=== PATIENT | female | born 1950 | race Caucasian/White ===

== ENCOUNTER → 2016-08-26 | Outpatient (CLI) | payer OTHER ==
[~2016-08-26] MED LIST: AMOX875T PO; ANT25HP PO; ASPI325T45 PO; ASPI81TA28 PO; CALC600T9 PO; CEPH500C PO; CITA40TA4 PO; CLX20 PO; DIPH25CA65 PO; LACTCHW3 PO; LATA0.5S OPB; LOSA100T33 PO; LOSARTAN PO; LSX40 PO; MELO7.5T5 PO; MULT-845 PO; RCPAV2 IV; TRAM-10 PO; TRAV0.00 OPB
== END ==
LOC: C.LABBC 12:56
PROVIDERS: ATTEND Orthopaedic Surgery
DX: M25.559 Pain in unspecified hip (principal); Z96.649 Presence of unspecified artificial hip joint; L03.90 Cellulitis, unspecified

== ENCOUNTER 2016-08-27 10:51 | Inpatient (IN) | payer OTHER ==
[~2016-08-27] VITALS: Ht 154.9 cm; Wt 128.8 kg
[~2016-08-27 10:51] MED LIST changes: -AMOX875T PO; -ASPI325T45 PO; -ASPI81TA28 PO; -CALC600T9 PO; -CEPH500C PO; -CITA40TA4 PO; -LACTCHW3 PO; -LATA0.5S OPB; -LOSARTAN PO; -LSX40 PO; -MULT-845 PO; -RCPAV2 IV
--- NOTE | 2016-08-27 11:22 | EMERGENCY ROOM VISIT NOTE ---
History Report prepared by Yarelis: Danelle Stevens Under the Supervision of: Dr. Vargas Suarez M.D. First contact with patient: 11:10 Chief Complaint: REFERRED BY DOCTOR Stated Complaint: HIP PAIN History of Present Illness The patient is a 66 year old female who presents to the Emergency Room with complaints of constant left hip pain beginning 2 weeks ago. The patient states that 2 weeks ago her hip started to feel itchy where she previously had it replaced last October. She reports that it has progressively worsened. She complains of redness and itchiness. She denies any abdominal pain, fever and chills. The patient states that she saw her primary care doctor yesterday and had labs that were abnormal and she also had an x-ray. She notes that she is on Keflex and Augmentin that she started yesterday after seeing her PCP and surgeon. Source of History: patient Onset: 2 weeks ago Position: other (left hip) Timing: constant Associated Symptoms: No fevers, No chills, No abdominal pain Note: She complains of redness and itchiness. Review of Systems All systems have been listed, reviewed, and are negative other than those previously mentioned. Please see Additional Medical History Sheet. Past Medical & Surgical Medical Problems: (1) Depression (2) Dyslipidemia (3) Edema (4) GERD (gastroesophageal reflux disease) (5) HTN (hypertension) (6) IBS (irritable bowel syndrome) (7) Obesity, morbid, BMI 50 or higher (8) Osteoarthritis of hip (9) Sleep apnea Surgical Problems: (1) H/O umbilical hernia repair (2) History of dental surgery (3) S/P appendectomy (4) S/P cholecystectomy (5) S/P hip replacement Family History No pertinent family history stated. Social History Smoking Status: Never Smoker Marital Status: Housing Status: lives with significant other Occupation Status: retired Current/Historical Medications Scheduled Amoxicillin & Pot Clavulanate (Augmentin 875-125 mg), 1 TAB PO BID Aspirin (Aspirin), 325 MG PO DAILY Calcium Carbonate-Vitamin D (Calcium + D), 1 TAB PO BID Cephalexin Monohydrate (Keflex), 500 MG PO QID Citalopram (Citalopram Hydrobromide), 40 MG PO DAILY Latanoprost (Xalatan 0.005% Oph Emilie), 1 DROPS OPB HS Losartan Potassium & Hydrochlo (Losartan Potassium/Hydroc), 1 TAB PO HS Multiple Vitamins W/ Minerals (Centrum Silver Adult 50+), 1 TAB PO DAILY Scheduled PRN Furosemide (Furosemide), 40 MG PO DAILY PRN for swelling Meclizine HCl (Meclizine HCl), 25 MG PO TID PRN for Dizziness or Vertigo Tramadol (Ultram), 100 MG PO Q6H PRN for Pain Allergies Coded Allergies: Codeine (Verified Allergy, Unknown, nausea/vomiting, 08/27/16) Erythromycin (Verified Allergy, Unknown, *hallucinations when mixes with sudafed, 08/27/16) Pseudoephedrine (Verified Allergy, Unknown, *hallucinations when mixes with e-mycin, 08/27/16) Hydrocodone (Verified Adverse Reaction, Mild, NAUSEA/VOMITING, 08/27/16) Oxycodone (Verified Adverse Reaction, Mild, NAUSEA/VOMITING, 08/27/16) Simvastatin (Verified Adverse Reaction, Unknown, muscle aches, 08/27/16) Physical Exam Vital Signs Date Time Temp Pulse Resp B/P (MAP) Pulse Ox O2 Delivery O2 Flow Rate FiO2 08/27/16 13:00 74 18 111/60 94 Room Air 08/27/16 11:02 36.9 97 20 150/84 93 Room Air Physical Exam GENERAL: Patient awake, alert, oriented x 3. Patient follows commands. Patient does not appear toxic. Patient is adequately hydrated and well- nourished. SKIN: No erythema, pallor, cyanosis or rash HEENT: Normal head, pupils equal, reactive to light and accommodation. LUNGS: Clear to auscultation. No wheezes, no rales, no rhonchi. HEART: No murmurs. No gallops. No rubs ABDOMEN: No masses, obese, nontender, no rebound, no hepatomegaly or splenomegaly. EXTREMITIES: No signs of trauma. No pedal or pretibial edema. No calf or thigh tenderness. Over the left hip she has a well healed scar with significant surrounding erythema and tenderness, no drainage seen. NEUROLOGIC: Cranial nerves II-XII within normal limits. No gross motor sensory function deficits. Medical Decision & Procedures ER Provider Diagnostic Interpretation: X ray results are stated below per my interpretation and the radiologist's interpretation. LEFT HIP UNILATERAL 2 VIEWS DISCUSSION: Prior total left hip replacement. Good contact between prosthetic and underlying bone. No lytic or blastic process. There is no evidence for soft tissue swelling. IMPRESSION: No acute process status post total left hip replacement Electronically signed by: Jackson Giraldo M.D. 08/27/2016 2:47 PM Dictated Date/Time: 08/27/2016 2:46 PM TWO VIEW CHEST FINDINGS: PA and lateral chest radiographs are compared to study dated 10/31/2015. The heart is mildly enlarged. The pulmonary vasculature is noncongested. Chronic interstitial thickening is similar to previous. There is mild elevation of the right hemidiaphragm and bibasilar atelectasis. The lungs and pleural spaces are otherwise clear. There is no pneumothorax. The skeletal structures are osteopenic. Degenerative change is noted throughout the thoracic spine. IMPRESSION: Cardiac enlargement with no active disease in the chest. Electronically signed by: Gamaliel Tamez M.D. 08/27/2016 2:53 PM Dictated Date/Time: 08/27/2016 2:52 PM Laboratory Results Test 08/27/16 11:40 08/27/16 12:00 08/27/16 13:11 Immature Granulocyte % (Auto) 0.4 % White Blood Count 15.11 K/uL (4.8-10.8) Red Blood Count 3.95 M/uL (4.2-5.4) Hemoglobin 11.4 g/dL (12.0-16.0) Hematocrit 34.6 % (37-47) Mean Corpuscular Volume 87.6 fL (80-100) Mean Corpuscular Hemoglobin 28.9 pg (25-34) Mean Corpuscular Hemoglobin Concent 32.9 g/dl (32-36) Platelet Count 386 K/uL (130-400) Mean Platelet Volume 10.5 fL (7.4-10.4) Neutrophils (%) (Auto) 84.2 % Lymphocytes (%) (Auto) 10.7 % Monocytes (%) (Auto) 3.9 % Eosinophils (%) (Auto) 0.7 % Basophils (%) (Auto) 0.1 % Neutrophils # (Auto) 12.71 K/uL (1.4-6.5) Lymphocytes # (Auto) 1.62 K/uL (1.2-3.4) Monocytes # (Auto) 0.59 K/uL (0.11-0.59) Eosinophils # (Auto) 0.11 K/uL (0-0.5) Basophils # (Auto) 0.02 K/uL (0-0.2) Immature Granulocyte # (Auto) 0.06 K/uL (0.00-0.02) Large Platelets 2+ Erythrocyte Sedimentation Rate > 90 mm/hr (0-21) Prothrombin Time 11.8 SECONDS (9.0-12.0) Prothromb Time International Ratio 1.1 (0.9-1.1) Activated Partial Thromboplast Time 27.8 SECONDS (21.0-31.0) Partial Thromboplastin Ratio 1.1 Est Creatinine Clear Calc Drug Dose 57.6 ml/min Total Bilirubin 0.8 mg/dl (0.2-1) Aspartate Amino Transf (AST/SGOT) 25 U/L (15-37) Alanine Aminotransferase (ALT/SGPT) 25 U/L (12-78) Alkaline Phosphatase 199 U/L (45-117) C-Reactive Protein 25.60 mg/dl (0-0.29) Total Protein 7.8 gm/dl (6.4-8.2) Albumin 2.6 gm/dl (3.4-5.0) Globulin 5.2 gm/dl (2.5-4.0) Albumin/Globulin Ratio 0.5 (0.9-2) Procalcitonin 0.36 ng/ml (0-0.5) Hepatitis C Antibody Screen NEG (NEG) Urine Color YELLOW Urine Appearance CLEAR (CLEAR) Urine pH 5.0 (4.5-7.5) Urine Specific [place] 1.020 (1.000-1.030) Urine Protein NEG (NEG) Urine Glucose (UA) NEG (NEG) Urine Ketones NEG (NEG) Urine Occult Blood TRACE (NEG) Urine Nitrite NEG (NEG) Urine Bilirubin NEG (NEG) Urine Urobilinogen NEG (NEG) Urine Leukocyte Esterase NEG (NEG) Urine WBC (Auto) 1-5 /hpf (0-5) Urine RBC (Auto) 0-4 /hpf (0-4) Urine Hyaline Casts (Auto) 1-5 /lpf (0-5) Urine Epithelial Cells (Auto) 5-10 /lpf (0-5) Urine Bacteria (Auto) NEG (NEG) Bedside Lactic Acid Venous 1.04 mmol/L (0.90-1.70) Laboratory results as stated above per my review. Medications Administered Medications (Trade) Dose Ordered Sig/Reginaldo Route Start Time Stop Time Status Last Admin Dose Admin Piperacillin Sod/ Tazobactam Sod (Zosyn Iv) 4.5 gm NOW STAT IV 08/27/16 13:04 08/27/16 13:07 DC 08/27/16 13:23 4.5 GM Vancomycin HCl 2500 mg/Sodium Chloride 550 ml @ 200 mls/hr NOW STAT IV 08/27/16 13:06 08/27/16 15:50 DC 08/27/16 14:04 200 MLS/HR Sodium Chloride 2,000 ml @ 1,000 mls/hr Q2H ONCE IV 08/27/16 14:15 08/27/16 16:14 DC 08/27/16 14:27 1,000 MLS/HR ECG Indication: other Rate (beats per minute): 81 Rhythm: sinus rhythm Findings: no acute ischemic change, no ectopy ED Course 1110: Past medical records reviewed. The patient was evaluated in room B3. A complete history and physical examination was performed. 1304: Zosyn IV 4.5gm IV. 1306: Vancomycin HCl 2500mg/Sodium Chloride 550ml @ 200mls/hr IV. 1313: The patient's lactic acid is 1.04. 1411: Discussed the patient's case with Dr. Ag. The patient will be evaluated for further management. 1415: Sodium Chloride 2000 ml @ 1000 mls/hr IV. 1421: Upon reevaluation, the patient is doing well. I discussed today's findings with the patient. She verbalized agreement of the treatment plan. I spoke with Dr. Ag of the [facility] Service to evaluate the patient for further management. Medical Decision Differential diagnosis includes infected hip, sepsis. Medication Reconciliation: I attest that I have personally reviewed the patient' s current medication list. Blood pressure Screening: Patient was found to have normal blood pressure on screening and does not require follow up. The patient has a large erythematous tender area approximate 10 x 12 cm over the left hip incision. The incision itself is well-healed and there is no drainage. Multiple labs, EKG and imaging were obtained. The patient's sedimentation rate is markedly elevated. Her white count is elevated. Lactic acid is not that elevated. The patient has experienced fever. Despite lactic acid I believe she is septic. The patient was given large volumes of fluid in addition to IV antibiotics. Blood cultures were obtained prior to administration of IV antibiotics but the patient did receive oral antibiotics prior to arrival. I discussed care with the patient, daughter and hospitalist. I attempted to place a call to orthopedics to inform them of the problem. Consults Time Called: 1408 Consulting Physician: Dr. Kimberli Donnelly Returned Call: 1411 Discussed the patient's case with Dr. Ag. The patient will be evaluated for further management. Additional Consults: Time Called: 1515 Consulted Physician: August Returned Call: 1530 Additional Comments: I discussed findings and treatment plan thus far with Dr. Koch. Patient was admitted under the [facility] service. Impression Primary Impression: Sepsis Additional Impression: Cellulitis of left hip Scribe Attestation The scribe's documentation has been prepared under my direction and personally reviewed by me in its entirety. I confirm that the note above accurately reflects all work, treatment, procedures, and medical decision making performed by me. Departure Information Dispostion Being Evaluated By Hospitalist Prescriptions Tramadol (Ultram) 50 Mg Tab 100 MG PO Q6H Y for Pain, #60 TAB Prov: Denice Bernstein PA-C 08/27/16 Referrals Kassi White D.O. (PCP) Patient Instructions My [facility] Problem Qualifiers
[2016-08-27] MEDS ORDERED: AMOX875T PO (11:37)
[2016-08-27] MEDS ORDERED: LOSARTAN PO (11:37)
[2016-08-27] MEDS ORDERED: ASPI81TA28 PO (11:37)
[2016-08-27] MEDS ORDERED: CITA40TA4 PO (11:37)
[2016-08-27] MEDS ORDERED: CEPH500C PO (11:37)
[2016-08-27 12:07] LABS: INR 1.1 (0.9-1.1); PARTIAL THROMBOPLASTIN RATIO 1.1; PROTHROMBIN TIME (PATIENT) 11.8 SECONDS (9.0-12.0)
[2016-08-27 12:18] LABS: BUN/CREATININE RATIO 33.4 (10-20); CREATININE 1.2 mg/dl (0.60-1.20); POTASSIUM 3.6 mmol/L (3.5-5.1)
[2016-08-27 12:21] LABS: HEMATOCRIT 34.6 % (37-47); MEAN CELL VOLUME 87.6 fL (80-100); MEAN CORPUSCULAR HEMOGLOBIN 28.9 pg (25-34); MEAN CORPUSCULAR HGB CONC 32.9 g/dl (32-36); MEAN PLATELET VOLUME 10.5 fL (7.4-10.4); PLATELET COUNT 386 K/uL (130-400); RED BLOOD COUNT 3.95 M/uL (4.2-5.4); WHITE BLOOD COUNT 15.11 K/uL (4.8-10.8)
[2016-08-27 12:25] LABS: ALB/GLOB RATIO 0.5 (0.9-2); C-REACTIVE PROTEIN 25.6 mg/dl (0-0.29)
[2016-08-27 12:41] LABS: URINE APPEARANCE CLEAR (CLEAR); URINE BILIRUBIN NEG (NEG); URINE COLOR YELLOW; URINE NITRITE NEG (NEG); UROBILINOGEN NEG (NEG); ZZURINE CULT IF INDIC CATH NO
[2016-08-27 12:46] LABS: MANUAL MICROSCOPIC REQUIRED? NO; REVIEW REQ? NO
[2016-08-27] MEDS ORDERED: PIPERACILLIN/TAZOBACTAM 4.5 GM/100ML D5W IV STA (13:04)
[2016-08-27] MEDS ORDERED: VANCOMYCIN INJ 2,500 MG in SODIUM CHLORIDE 0.9% 500ML 500 ML IV STA (13:06)
[2016-08-27 13:15] LABS: BASO % 0.1 %; BASO ABS # 0.02 K/uL (0-0.2); COMPLETE YES; EOS % 0.7 %; IG% 0.4 %; LARGE PLATELETS 2+; LYMPH % 10.7 %; LYMPH ABS # 1.62 K/uL (1.2-3.4); MONO % 3.9 %; NEUT % 84.2 %
[2016-08-27] MEDS ORDERED: SODIUM CHLORIDE 0.9% 1000ML 2,000 ML IV ONE (14:15)
[2016-08-27 14:35] VITALS: O2SAT 94; Ht 154.9 cm; Wt 128.8 kg
--- NOTE | 2016-08-27 14:49 | DIAGNOSTIC IMAGING REPORT ---
LEFT HIP UNILATERAL 2 VIEWS CLINICAL HISTORY: left hip infection pain. Infection. COMPARISON: None. DISCUSSION: Prior total left hip replacement. Good contact between prosthetic and underlying bone. No lytic or blastic process. There is no evidence for soft tissue swelling. IMPRESSION: No acute process status post total left hip replacement Electronically signed by: Jackson Giraldo M.D. 08/27/2016 2:47 PM Dictated Date/Time: 08/27/2016 2:46 PM
--- NOTE | 2016-08-27 14:55 | DIAGNOSTIC IMAGING REPORT ---
TWO VIEW CHEST CLINICAL HISTORY: Hip infection. FINDINGS: PA and lateral chest radiographs are compared to study dated 10/31/2015. The heart is mildly enlarged. The pulmonary vasculature is noncongested. Chronic interstitial thickening is similar to previous. There is mild elevation of the right hemidiaphragm and bibasilar atelectasis. The lungs and pleural spaces are otherwise clear. There is no pneumothorax. The skeletal structures are osteopenic. Degenerative change is noted throughout the thoracic spine. IMPRESSION: Cardiac enlargement with no active disease in the chest. Electronically signed by: Gamaliel Tamez M.D. 08/27/2016 2:53 PM Dictated Date/Time: 08/27/2016 2:52 PM
[2016-08-27] MEDS ORDERED: ONDANSETRON INJ 2 MG/ML 2 ML VIAL IV PRN (15:00)
[2016-08-27] MEDS ORDERED: MULT-845 PO (15:00)
[2016-08-27] MEDS ORDERED: LOSA100T33 PO (15:00)
[2016-08-27] MEDS ORDERED: LATA0.5S OPB (15:00)
[2016-08-27] MEDS ORDERED: CALC600T9 PO (15:00)
[2016-08-27] MEDS ORDERED: LSX40 PO (15:00)
[2016-08-27] MEDS ORDERED: ACETAMINOPHEN 325 MG TAB PO PRN (15:00)
[2016-08-27] MEDS ORDERED: TRAM-10 PO (15:00)
[2016-08-27] MEDS ORDERED: ASPI325T45 PO (15:00)
[2016-08-27] MEDS ORDERED: SODIUM CHLORIDE 0.9% 1000ML 1,000 ML IV SCH (15:15)
[2016-08-27] MEDS ORDERED: MECLIZINE HCL 25 MG TAB PO PRN (15:15)
--- NOTE | 2016-08-27 15:32 | History and Physical ---
History & Physical Date & Time of Service: Aug 27, 2016 at 15:04 Chief Complaint: Hip Pain Primary Care Physician: Kassi White D.O. History of Present Illness Source: patient, clinic records This is a 66 year old female with PMH of HTN, dyslipidemia, morbid obesity, GERD , depression, and other problems listed below who presents to the ED for left hip rash. Patient reports prior left hip arthroplasty by Dr. Koch in October 2015. Approximately 1.5 weeks ago she developed itching and soreness around left hip incision area. There was no injury/ trauma. Her daughter looked at the hip yesterday and noticed it was erythematous and therefore brought patient to clinic. Pt was seen by PCP Dr. White yesterday, x-ray and labs were done and patient was started on Augmentin. Labs from yesterday showed creatinine of 1.8 from baseline of 1.0, WBC >15K. patient was called about these results and sent to ER. Patient was also seen by ortho Dr. Puga yesterday who started patient on Keflex. Pt admits to mild L hip soreness. No issues with ROM. Has been ambulating with a cane. No falls. Patient admits to mild confusion for past 1 week- occasionally mixes up the names of her children. No focal neurologic symptoms. Celexa was increased yesterday by Dr. White for worsened anxiety/ depression. No suicidal ideations. No fever, chills, chest pain, SOB, N/V/D, dysuria, frequency, LE edema. Past Medical/Surgical History Medical Problems: (1) Depression Status: Chronic (2) Dyslipidemia Status: Chronic (3) Edema Status: Chronic (4) GERD (gastroesophageal reflux disease) Status: Chronic (5) HTN (hypertension) Status: Chronic (6) IBS (irritable bowel syndrome) Status: Chronic (7) Obesity, morbid, BMI 50 or higher Status: Chronic (8) Sleep apnea Permanent Comment: not on CPAP Status: Chronic Surgical Problems: (1) H/O umbilical hernia repair Status: Chronic (2) History of dental surgery Status: Chronic (3) S/P appendectomy Status: Chronic (4) S/P cholecystectomy Status: Chronic (5) S/P hip replacement Permanent Comment: left; October 2015; Dr. Koch Status: Chronic Family History Cardiac disorder MOTHER Hypertension MOTHER BROTHER Social History Smoking Status: Never Smoker Alcohol Use: none Marital Status: Housing status: lives with significant other Occupational Status: retired Multi-Drug Resistant Organisms History of MDRO: No Allergies Coded Allergies: Codeine (Verified Allergy, Unknown, nausea/vomiting, 08/27/16) Erythromycin (Verified Allergy, Unknown, *hallucinations when mixes with sudafed, 08/27/16) Pseudoephedrine (Verified Allergy, Unknown, *hallucinations when mixes with e-mycin, 08/27/16) Hydrocodone (Verified Adverse Reaction, Mild, NAUSEA/VOMITING, 08/27/16) Oxycodone (Verified Adverse Reaction, Mild, NAUSEA/VOMITING, 08/27/16) Simvastatin (Verified Adverse Reaction, Unknown, muscle aches, 08/27/16) Home Medications Scheduled Amoxicillin & Pot Clavulanate (Augmentin 875-125 mg), 1 TAB PO BID Aspirin (Aspirin), 325 MG PO DAILY Calcium Carbonate-Vitamin D (Calcium + D), 1 TAB PO BID Cephalexin Monohydrate (Keflex), 500 MG PO QID Citalopram (Citalopram Hydrobromide), 40 MG PO DAILY Latanoprost (Xalatan 0.005% Oph Emilie), 1 DROPS OPB HS Losartan Potassium & Hydrochlo (Losartan Potassium/Hydroc), 1 TAB PO HS Multiple Vitamins W/ Minerals (Centrum Silver Adult 50+), 1 TAB PO DAILY Scheduled PRN Furosemide (Furosemide), 40 MG PO DAILY PRN for swelling Meclizine HCl (Meclizine HCl), 25 MG PO TID PRN for Dizziness or Vertigo Tramadol (Ultram), 100 MG PO Q6H PRN for Pain Review of Systems Ten systems reviewed and negative except as noted in HPI. Physical Exam Vital Signs Date Time Temp Pulse Resp B/P (MAP) Pulse Ox O2 Delivery O2 Flow Rate FiO2 08/27/16 14:25 70 16 164/75 97 Room Air 08/27/16 13:00 74 18 111/60 94 Room Air 08/27/16 11:02 36.9 97 20 150/84 93 Room Air General Appearance: no apparent distress, + obese, + pertinent finding (alert cooperative 66 year old female, lying in bed, no distress) Head: normocephalic, atraumatic Eyes: normal inspection, PERRL, sclerae normal ENT: hearing grossly normal, pharynx normal Neck: supple, trachea midline Respiratory/Chest: lungs clear, normal breath sounds, no respiratory distress, no accessory muscle use Cardiovascular: regular rate, rhythm, no murmur Abdomen/GI: normal bowel sounds, non tender, soft, + pertinent finding (obese) Extremities/Musculoskelatal: no calf tenderness, no pedal edema, + pertinent finding (no pain with left hip flexion) Neurologic/Psych: alert, normal mood/affect, oriented x 3, + pertinent finding (no focal deficit on gross examination. speech is clear. no dysarthria. ) Skin: warm/dry, + pertinent finding (bright erythema and tenderness surrounding healed left hip incision. mildly indurated but no fluctuant area. no open area or drainage. ) Diagnostics Laboratory Results Results Past 24 Hours Test 08/27/16 11:40 08/27/16 12:00 08/27/16 13:11 Range/Units White Blood Count 15.11 4.8-10.8 K/uL Red Blood Count 3.95 4.2-5.4 M/uL Hemoglobin 11.4 12.0-16.0 g/dL Hematocrit 34.6 37-47 % Mean Corpuscular Volume 87.6 80-100 fL Mean Corpuscular Hemoglobin 28.9 25-34 pg Mean Corpuscular Hemoglobin Concent 32.9 32-36 g/dl Platelet Count 386 130-400 K/uL Mean Platelet Volume 10.5 7.4-10.4 fL Neutrophils (%) (Auto) 84.2 % Lymphocytes (%) (Auto) 10.7 % Monocytes (%) (Auto) 3.9 % Eosinophils (%) (Auto) 0.7 % Basophils (%) (Auto) 0.1 % Neutrophils # (Auto) 12.71 1.4-6.5 K/uL Lymphocytes # (Auto) 1.62 1.2-3.4 K/uL Monocytes # (Auto) 0.59 0.11-0.59 K/uL Eosinophils # (Auto) 0.11 0-0.5 K/uL Basophils # (Auto) 0.02 0-0.2 K/uL RDW Standard Deviation 47.0 36.4-46.3 fL RDW Coefficient of Variation 14.4 11.5-14.5 % Immature Granulocyte % (Auto) 0.4 % Immature Granulocyte # (Auto) 0.06 0.00-0.02 K/uL Large Platelets 2+ Erythrocyte Sedimentation Rate > 90 0-21 mm/hr Prothrombin Time 11.8 9.0-12.0 SECONDS Prothromb Time International Ratio 1.1 0.9-1.1 Activated Partial Thromboplast Time 27.8 21.0-31.0 SECONDS Partial Thromboplastin Ratio 1.1 Sodium Level 139 136-145 mmol/L Potassium Level 3.6 3.5-5.1 mmol/L Chloride Level 102 98-107 mmol/L Carbon Dioxide Level 27 21-32 mmol/L Anion Gap 10.0 3-11 mmol/L Blood Urea Nitrogen 40 7-18 mg/dl Creatinine 1.20 0.60-1.20 mg/dl Est Creatinine Clear Calc Drug Dose 57.6 ml/min Estimated GFR () 54.2 Estimated GFR (Non- 46.7 BUN/Creatinine Ratio 33.4 10-20 Random Glucose 126 70-99 mg/dl Calcium Level 9.0 8.5-10.1 mg/dl Total Bilirubin 0.8 0.2-1 mg/dl Aspartate Amino Transf (AST/SGOT) 25 15-37 U/L Alanine Aminotransferase (ALT/SGPT) 25 12-78 U/L Alkaline Phosphatase 199 45-117 U/L C-Reactive Protein 25.60 0-0.29 mg/dl Total Protein 7.8 6.4-8.2 gm/dl Albumin 2.6 3.4-5.0 gm/dl Globulin 5.2 2.5-4.0 gm/dl Albumin/Globulin Ratio 0.5 0.9-2 Procalcitonin 0.36 0-0.5 ng/ml Urine Color YELLOW Urine Appearance CLEAR CLEAR Urine pH 5.0 4.5-7.5 Urine Specific [place] 1.020 1.000-1.030 Urine Protein NEG NEG Urine Glucose (UA) NEG NEG Urine Ketones NEG NEG Urine Occult Blood TRACE NEG Urine Nitrite NEG NEG Urine Bilirubin NEG NEG Urine Urobilinogen NEG NEG Urine Leukocyte Esterase NEG NEG Urine WBC (Auto) 1-5 0-5 /hpf Urine RBC (Auto) 0-4 0-4 /hpf Urine Hyaline Casts (Auto) 1-5 0-5 /lpf Urine Epithelial Cells (Auto) 5-10 0-5 /lpf Urine Bacteria (Auto) NEG NEG Bedside Lactic Acid Venous 1.04 0.90-1.70 mmol/L Microbiology Results 08/27/16 Blood Culture, Received Pending 08/27/16 Blood Culture, Received Pending Diagnostic Radiology LEFT HIP UNILATERAL 2 VIEWS CLINICAL HISTORY: left hip infection pain. Infection. COMPARISON: None. DISCUSSION: Prior total left hip replacement. Good contact between prosthetic and underlying bone. No lytic or blastic process. There is no evidence for soft tissue swelling. IMPRESSION: No acute process status post total left hip replacement TWO VIEW CHEST CLINICAL HISTORY: Hip infection. FINDINGS: PA and lateral chest radiographs are compared to study dated 10/31/2015. The heart is mildly enlarged. The pulmonary vasculature is noncongested. Chronic interstitial thickening is similar to previous. There is mild elevation of the right hemidiaphragm and bibasilar atelectasis. The lungs and pleural spaces are otherwise clear. There is no pneumothorax. The skeletal structures are osteopenic. Degenerative change is noted throughout the thoracic spine. IMPRESSION: Cardiac enlargement with no active disease in the chest. EKG NSR, 81 bpm, no significant change when compared to prior EKG, as per cardiology read, also reviewed by me Impression Assessment and Plan LEFT HIP CELLULITIS In area of healed incision from prior L AMADOR October 2015 Was started on Augmentin and Keflex as outpatient + leukocytosis (WBC 15K) ; ESR >90, however no sepsis- afebrile, HR and BP stable, lactic acid WNL, procalcitonin WNL L hip x-ray- no acute findings Started on empiric vancomycin and Zosyn- will continue F/u blood cultures Consult ortho- Dr. Koch RESOLVING MALACHI Outpatient labs 08/26/16 showed creatinine 1.8 from baseline 1.0; improved to 1.2 today Received IVFs in ER- will give additional 1 liter at 100 mL/hour Hold furosemide and HCTZ Recheck PRP in am Avoid nephrotoxins HYPERTENSION BP intermittently elevated in ER Continue losartan Hold HCTZ and furosemide for resolving MALACHI DEPRESSION Continue Celexa- dose increased by PCP on 08/26/16 Denies suicidal ideation DVT PROPHYLAXIS Heparin SQ DISPOSITION Admit to med/ surg Follows with Dr. White for primary care Patient seen in collaboration with Dr. Ag. Please see his addendum. Attending Addendum: The patine bro seen and examined in ER in presence of the daughter Itchy and redness left lateral hip for the last 2 days Scratched the area and the overall condition got worse O/E Hemodynamically stable HEENT-unremarkable Chest-clear Heart-regular,no murmur Abdomen-benign,no masses,bowel sound present Local Exam of the left Hip area: Spreading cellulitis over left lateral hip area Minor skin break at the center without any drainage. Labs and Imaging studies were reviewed D/W Ortho-Follow CT of the Hip ;May need I&D Continue antibiotics Agree with the assessment and plan. DR Johnny Ag VTE Prophylaxis VTE Risk Assessment Done? Y/N: Yes Risk Level: Moderate
[2016-08-27] MEDS ORDERED: VANCOMYCIN CONSULT ACTIVE PRN (16:00)
[2016-08-27] MEDS ORDERED: PIPERACILL/TAZOBAC CONSULT ACTIVE PRN (16:00)
--- NOTE | 2016-08-27 16:18 | Pharmacy Progress Note ---
Pharmacy Abx Initial Consult Date of Service Aug 27, 2016. Pharmacy Dosing Scope Date of Consult: 08/27/16 Consultation requested by: Harpal Bernstein Pharmacy is consulted to initiate Vancomycin + Zosyn IV dosing therapy, order appropriate labs and adjust drug dose/frequency. Subjective The patient is a 66 year old female admitted on 08/27/16 with L hip cellulitis. Objective Height (Feet): 5 Height (Inches): 1.00 Weight (Kilograms): 128.800 Vital Signs (Past 12Hrs) Vital Signs Past 12 Hours Date Time Temp Pulse Resp B/P (MAP) Pulse Ox O2 Delivery O2 Flow Rate FiO2 08/27/16 15:28 80 16 123/54 94 Room Air 08/27/16 14:30 75 16 127/86 98 Room Air 08/27/16 14:25 70 16 164/75 97 Room Air 08/27/16 13:00 74 18 111/60 94 Room Air 08/27/16 11:02 36.9 97 20 150/84 93 Room Air Lab Results (24Hrs) Laboratory Tests (24 Hours) Test 08/27/16 11:40 C-Reactive Protein 25.60 mg/dl (0-0.29) H Erythrocyte Sedimentation Rate > 90 mm/hr (0-21) H White Blood Count 15.11 K/uL (4.8-10.8) H Red Blood Count 3.95 M/uL (4.2-5.4) L Hemoglobin 11.4 g/dL (12.0-16.0) L Hematocrit 34.6 % (37-47) L Mean Corpuscular Volume 87.6 fL (80-100) Mean Corpuscular Hemoglobin 28.9 pg (25-34) Mean Corpuscular Hemoglobin Concent 32.9 g/dl (32-36) Platelet Count 386 K/uL (130-400) Mean Platelet Volume 10.5 fL (7.4-10.4) H Neutrophils (%) (Auto) 84.2 % Lymphocytes (%) (Auto) 10.7 % Monocytes (%) (Auto) 3.9 % Eosinophils (%) (Auto) 0.7 % Basophils (%) (Auto) 0.1 % Neutrophils # (Auto) 12.71 K/uL (1.4-6.5) H Lymphocytes # (Auto) 1.62 K/uL (1.2-3.4) Monocytes # (Auto) 0.59 K/uL (0.11-0.59) Eosinophils # (Auto) 0.11 K/uL (0-0.5) Basophils # (Auto) 0.02 K/uL (0-0.2) Procalcitonin 0.36 ng/ml (0-0.5) Micro Results Date/Time Source Procedure Growth Status 08/27/16 11:50 Blood Blood Culture Pending Received 08/27/16 11:40 Blood Blood Culture Pending Received Risk Factors for Resistance * Antimicrobial use within the last 90 days -> recent outpatient course of Augmentin and Keflex per H&P Assessment & Plan Assessment 66 year old female admitted with L hip cellulitis. Patient had a L hip arthroplasty in October of 2015. Cellulitis is located around the healed incision site from previous hip surgery. Plan Vancomycin + Zosyn IV for treatment of cellulitis Vancomycin IV * Loading dose: 2500 mg (19.4 mg/kg) * Maintenance dose: 1700 mg IV (13 mg/kg) every 18 hours * Goal trough level for cellulitis : 15 to 20 mcg/mL (pending C&S results) * Trough level ordered for 08/29/16 (*note - level is not at steady state) * A less than traditional dose and extended dosing interval have been selected due to likelihood of drug accumulation in obese patient with resolving MALACHI (Scr 1.8 -> 1.2 mg/dL). Baseline Scr is 1.0 mg/dL. Piperacillin/tazobactam * 4.5 g bolus administered over 30 minutes, then 4.5 g IV extended infusion every 8 hours for CrCl greater than 20 mL/min * Aggressive dosing selected due to BMI 35 or more Pharmacy will continue to follow and will adjust dose/frequency as necessary. Thank you.
--- NOTE | 2016-08-27 16:48 | DIAGNOSTIC IMAGING REPORT ---
CT OF THE LEFT HIP CT DOSE: HISTORY: Abscess abscess lateral to hip TECHNIQUE: Multiaxial CT images of the left hip were performed and reformatted in the sagittal and coronal plane without the use of contrast. COMPARISON: None. FINDINGS: Large collection lateral to the patient's total left hip prosthetic. This involves the muscular structures as well as extending to the skin surface. The lateral skin surface is thickened. Maximum collection cephalocaudal dimension is approximately 10 cm. Maximum transaxial dimensions are 14 x 6 cm. There appears to be direct extension to the lateral margin of the patient's left hip. Moderate infiltrative change of the musculature lateral to left hip is present. Based on this appearance there is a high suspicion of the left hip joint infection. There is evidence for old fracture involving the lateral aspect of the greater trochanter. Early bony involvement potentially is present at the superior aspect of the primary femoral shaft. There is no definitive involvement of the acetabular underlying bone or acetabular prosthetic. Nevertheless, a secondary joint infection must be diagnosis of exclusion. There is moderate infiltrative change surrounding the large abscess. A secondary collection is not seen. There is no evidence for acute fracture or dislocation. IMPRESSION: 1. Large soft tissue abscess/infection involving primarily the subcutaneous fat lateral to the left hip. 2. This appears to directly extend to the patient's total left hip prosthetic with a high suspicion for a secondary joint infection. 3. Dimensions are as discussed above with evidence for secondary skin thickening, fistulous tract formation, and potential underlying localized early bony destructive change involving the residual superior greater trochanter Electronically signed by: Jackson Giraldo M.D. 08/27/2016 4:47 PM Dictated Date/Time: 08/27/2016 4:31 PM
[2016-08-27 17:05] VITALS: BP 137/76; PULSE 84; TEMP 36.9; O2SAT 93
[2016-08-27] MEDS: PIPERACILL/TAZOBAC IV 4.5 GM in DEXTROSE 5% 100ML 100 ML IV SCH (18:04)
--- NOTE | 2016-08-27 18:40 | ORTHOPEDIC CONSULTATION ---
DATE OF CONSULTATION: 08/27/2016 CHIEF COMPLAINT: Possible abscess versus cellulitis of the left hip. HISTORY OF PRESENT ILLNESS: Johana is a pleasant 66-year-old female who I did a left total hip arthroplasty on October 2015. She has been doing great until about a [id number] ago when she developed itching soreness around the left hip incision area. There was no injury or no trauma. She saw my partner yesterday and she was started on Augmentin. Unfortunately, the lateral aspect of her hip continued to worsen with erythema and redness. There is also a little bit of drainage coming from right around the incision site. She continues to deny any pain in her groin or hip. She was able to walk in to the Emergency Room without much difficulty. Initial lab values did show elevated sed rate and CRP as well as the elevated white count. She was admitted to the hospital for possible sepsis and orthopedics was consulted to evaluate and treat. PAST MEDICAL HISTORY: Significant for depression, hyperlipidemia, GERD, hypertension, irritable bowel syndrome, morbid obesity, sleep apnea. PAST SURGICAL HISTORY: Significant for a left total hip arthroplasty in October [address] Koch, cholecystectomy, appendectomy and umbilical hernia repair. MEDICATIONS: Augmentin twice a day, aspirin 325 mg daily, calcium plus D 1 tab twice a day, Keflex 500 mg 4 times a day, Celexa 40 mg daily, Xalatan drops at night, losartan 1 tab at night and daily multivitamin. ALLERGIES: INCLUDE CODEINE, ERYTHROMYCIN, PSEUDOEPHEDRINE, HYDROCODONE, OXYCODONE, AND SIMVASTATIN. FAMILY HISTORY: Noncontributory. SOCIAL HISTORY: She is . She lives with her spouse. She is retired. REVIEW OF SYSTEMS: She complains of mild left incisional hip pain. All other pertinent review of systems is negative. PHYSICAL EXAMINATION: She does have a very large hip. Around the old incision site there is erythema and a very small area of some drainage. Her leg lengths are equal. She has good range of motion of her hip without any pain in the hip joint itself. LABORATORY DATA: Lab values are reviewed do show a white count of 15.11, the sed rate is greater than 90. The CRP is 25.6. Urinalysis is negative. Her vital signs are all stable on room air. IMPRESSION: Cellulitis, possible abscess of the left hip. PLAN: I am going to send her for a CAT scan of her left hip to see if there is any area of abscess. Right after the CAT scan, I do want an aspiration of her left hip joint in radiology. If there is no abscess and the hip aspiration is negative, I will treat this like a cellulitis with IV antibiotics. If there is an abscess, then I will evacuate the abscess. If the infection does go deeper into the joint, then will have to consider possible revision surgery. I described this all to her at bedside and will proceed. She is admitted to the medical service.
[2016-08-27 20:35] VITALS: BP 122/70; PULSE 80
[2016-08-27] MEDS: CALCIUM 600MG + VIT D 400 IU TAB PO SCH (20:36)
[2016-08-27] MEDS: LATANOPROST 0.005% OP SOLN 2.5 ML BTL OPB SCH (20:36)
[2016-08-27] MEDS: LOSARTAN POTASSIUM 50 MG TAB PO SCH (20:36)
[2016-08-27] MEDS ORDERED: NURSING VERBAL MED ORDER ONE (21:30)
[2016-08-27 22:53] VITALS: BP 133/71; PULSE 86; TEMP 37; O2SAT 90
[2016-08-28] VITALS (10 sets, daily range): BP systolic 103–138; BP diastolic 56–77; PULSE 68–87; TEMP 36.5–37; O2SAT 91–97
[2016-08-28] MEDS: TRAMADOL HCL 50 MG TAB PO PRN ×2 (01:44→14:06)
[2016-08-28] MEDS: PIPERACILL/TAZOBAC IV 4.5 GM in DEXTROSE 5% 100ML 100 ML IV SCH ×3 (01:44→18:51)
[2016-08-28] MEDS ORDERED: VANCOMYCIN INJ 1,700 MG in SODIUM CHLORIDE 0.9% 500ML 500 ML IV SCH (04:00)
[2016-08-28] MEDS ORDERED: TOBRAMYCIN SULF 1.2 GM VIAL (POWDER) ONE (07:03)
[2016-08-28] MEDS ORDERED: BACITRACIN 50000 UNIT VIAL ONE (07:04)
[2016-08-28] MEDS ORDERED: VANCOMYCIN HCL 1000MG/20ML VIAL ONE (07:04)
[2016-08-28] MEDS ORDERED: POVIDONE-IODINE OP SOLN 30 ML BTL ONE (07:04)
--- NOTE | 2016-08-28 07:05 | History & Physical Bridge Note ---
H&P Re-Evaluation Bridge Note: I have examined the patient, reviewed the History & Physical and in the interval since the performance of the History & Physical I have noted the following changes of clinical significance: No changes noted
[2016-08-28 07:09] LABS: HEMATOCRIT 30.9 % (37-47); MEAN CELL VOLUME 88.8 fL (80-100); MEAN CORPUSCULAR HEMOGLOBIN 28.4 pg (25-34); MEAN PLATELET VOLUME 10.2 fL (7.4-10.4); PLATELET COUNT 316 K/uL (130-400); RED BLOOD COUNT 3.48 M/uL (4.2-5.4); WHITE BLOOD COUNT 11.46 K/uL (4.8-10.8)
[2016-08-28] MEDS ORDERED: FENTANYL CITRATE INJ 50 MCG/1 ML 2 ML VIAL ONE ×3 (07:13→09:42)
[2016-08-28] MEDS ORDERED: LIDOCAINE HCL 2% 2 ML VIAL (20MG/ML) ONE (07:13)
[2016-08-28] MEDS ORDERED: SUCCINYLCHOLINE CHLORIDE 20 MG/ML 10 ML VIAL IV ONE (07:13)
[2016-08-28] MEDS ORDERED: GLYCOPYRROLATE INJ 0.2 MG/ML VIAL ONE (07:13)
[2016-08-28] MEDS ORDERED: ROCURONIUM BROMIDE 10 MG/ML 5 ML VIAL ONE (07:13)
[2016-08-28] MEDS ORDERED: PROPOFOL IV EMULSION 10 MG/ML 20 ML VIAL IV ONE (07:13)
[2016-08-28] MEDS ORDERED: PHENYLEPHRINE HCL INJ 10 MG/ML VIAL ONE (07:13)
[2016-08-28] MEDS ORDERED: MIDAZOLAM HCL 1 MG/ML 2ML VIAL ONE (07:13)
[2016-08-28] MEDS ORDERED: DAKIN'S SOLN 0.25% HALF STRENGTH 473ML BTL EXT ONE (07:15)
[2016-08-28 08:17] LABS: BUN/CREATININE RATIO 21.5 (10-20); CALCIUM 8.4 mg/dl (8.5-10.1); CREATININE 0.8 mg/dl (0.60-1.20); POTASSIUM 3.4 mmol/L (3.5-5.1)
[2016-08-28] MEDS ORDERED: LACTATED RINGER'S 1000ML 1,000 ML IV PRN (08:22)
[2016-08-28] MEDS ORDERED: HYDROmorphone INJ 1 MG/ML SYR IV PRN (08:30)
[2016-08-28] MEDS ORDERED: ONDANSETRON INJ 2 MG/ML 2 ML VIAL IV PRN (08:30)
[2016-08-28] MEDS ORDERED: EpHEDrine SULFATE 50MG/5ML SYR ONE (08:33)
[2016-08-28] MEDS ORDERED: NEOSTIGMINE METHYLSULFATE 5 MG/5 ML SYR ONE (08:42)
--- NOTE | 2016-08-28 09:40 | [facility] Post Operative Brief Note ---
Immediate Operative Summary Operative Date Aug 28, 2016. Pre-Operative Diagnosis Left hip cellulitis Post-Operative Diagnosis Left hip abscess Procedure(s) Performed Left hip incision and drainage Surgeon Dr. Koch Medical Assistant Ob Gyn Surgeon(s) Chris Ivy PA-C Estimated Blood Loss 200cc Findings as above Specimens Micro: (gram stain, routine, anaerobic) 1. left hip abscess 2. superficial tissue left hip Complication(s) None Disposition Recovery Room / PACU
[2016-08-28] MEDS: FENTANYL CITRATE INJ 50 MCG/1 ML 2 ML VIAL IV PRN ×2 (09:42→09:58)
--- NOTE | 2016-08-28 10:16 | Anesthesiology Progress Note ---
Anesthesia Post Op Note Date & Time Aug 28, 2016 at 10:16 Vital Signs Pain Intensity: 4 Vital Signs Past 12 Hours Date Time Temp Pulse Resp B/P (MAP) Pulse Ox O2 Delivery O2 Flow Rate FiO2 08/28/16 10:05 74 14 134/55 96 Nasal Cannula 2 08/28/16 09:55 78 16 126/76 97 Mask 10 08/28/16 09:49 72 15 136/62 98 Mask 10 08/28/16 09:42 78 16 140/98 98 Mask 10 08/28/16 09:38 37.9 78 16 140/98 98 Mask 10 08/28/16 07:00 37.0 72 18 138/72 (94) 93 Room Air 08/27/16 23:45 Room Air 08/27/16 22:53 37.0 86 16 133/71 (91) 90 Room Air Notes Mental Status: alert / awake / arousable, participated in evaluation Pt Amnestic to Procedure: Yes Nausea / Vomiting: adequately controlled Pain: adequately controlled Airway Patency, RR, SpO2: stable & adequate BP & HR: stable & adequate Hydration State: stable & adequate Anesthetic Complications: no major complications apparent Pt doing well.
[2016-08-28] MEDS: CEROVITE ADV FORMULA TAB PO SCH (10:49)
[2016-08-28] MEDS: CALCIUM 600MG + VIT D 400 IU TAB PO SCH ×2 (10:49→21:26)
[2016-08-28] MEDS: CITALOPRAM 40 MG TAB PO SCH (10:49)
[2016-08-28] MEDS: ASPIRIN 325 MG ECTAB PO SCH (10:49)
[2016-08-28] MEDS ORDERED: POTASSIUM CHLORIDE 10 MEQ TABCR PO ONE (13:45)
--- NOTE | 2016-08-28 16:20 | Medical Consult ---
Consultation Date of Consultation: Aug 28, 2016. Attending Physician: Rafael Fernandez MD Reason for Consultation: Abscess left hip History of Present Illness 66-year-old female with history of left hip replacement in October 2015, who was well until approximately 1-1/2 weeks ago when she noted onset of pain and redness around the incision in her left hip. She saw her primary care physician who started her on Augmentin, then this was changed to cephalexin but symptoms worsened and patient was brought to the emergency room. She was found to have evidence of infection of the left hip was taken to the operating room were then abscess was found and drained. She has been started empirically on IV vancomycin. Gram stain of the abscess fluid shows gram-positive cocci. Patient currently afebrile and hemodynamically stable. Tolerating vancomycin without apparent difficulty. Pain relatively well controlled. Past Medical/Surgical History Medical Problems: (1) Cellulitis of left hip Status: Acute (2) Sepsis Status: Acute Medical Problems: (1) Depression (2) Dyslipidemia (3) Edema (4) GERD (gastroesophageal reflux disease) (5) HTN (hypertension) (6) IBS (irritable bowel syndrome) (7) Obesity, morbid, BMI 50 or higher (8) Osteoarthritis of hip (9) Sleep apnea Surgical Problems: (1) H/O umbilical hernia repair (2) History of dental surgery (3) S/P appendectomy (4) S/P cholecystectomy (5) S/P hip replacement Family History Cardiac disorder MOTHER Hypertension MOTHER BROTHER Social History Smoking Status: Never Smoker Alcohol Use: none Marital Status: Housing Status: lives with significant other Occupation Status: retired Allergies Coded Allergies: Codeine (Verified Allergy, Unknown, nausea/vomiting, 08/27/16) Erythromycin (Verified Allergy, Unknown, *hallucinations when mixes with sudafed, 08/27/16) Pseudoephedrine (Verified Allergy, Unknown, *hallucinations when mixes with e-mycin, 08/27/16) Hydrocodone (Verified Adverse Reaction, Mild, NAUSEA/VOMITING, 08/27/16) Oxycodone (Verified Adverse Reaction, Mild, NAUSEA/VOMITING, 08/27/16) Simvastatin (Verified Adverse Reaction, Unknown, muscle aches, 08/27/16) Current Inpatient Medications Current Inpatient Medications Medications (Trade) Dose Ordered Sig/Reginaldo Route Start Time Stop Time Status Last Admin Dose Admin Heparin Sodium (Porcine) (Heparin Sq 5000 Unit/0.5ml) 5,000 unit Q8 SQ 08/27/16 22:00 09/26/16 21:59 Future Hold Acetaminophen (Tylenol Tab) 650 mg Q4H PRN PO 08/27/16 15:00 09/26/16 14:59 Ondansetron HCl (Zofran Inj) 4 mg Q6H PRN IV 08/27/16 15:00 09/26/16 14:59 Piperacillin Sod/ Tazobactam Sod (Consult) 1 ea UD PRN N/A 08/27/16 16:00 09/26/16 15:59 Vancomycin HCl (Consult) 1 ea UD PRN N/A 08/27/16 16:00 09/26/16 15:59 Aspirin (Ecotrin Tab) 325 mg DAILY PO 08/28/16 09:00 09/27/16 08:59 08/28/16 10:49 325 MG Citalopram Hydrobromide (celeXA TAB) 40 mg DAILY PO 08/28/16 09:00 09/27/16 08:59 08/28/16 10:49 40 MG Latanoprost (Xalatan Oph Soln) 1 drops HS OPB 08/27/16 21:00 09/26/16 20:59 08/27/16 20:36 1 DROPS Multivitamins/ Minerals (Multivitamin W/ Minerals Tab) 1 tab DAILY PO 08/28/16 09:00 09/27/16 08:59 08/28/16 10:49 1 TAB Tramadol HCl (Ultram Tab) 100 mg Q6H PRN PO 08/27/16 15:15 09/26/16 15:14 08/28/16 14:06 100 MG Calcium/Vitamin D (Caltrate Plus Tab) 1 tab BID PO 08/27/16 21:00 09/26/16 20:59 08/28/16 10:49 1 TAB Losartan Potassium (coZAAR TAB) 100 mg HS PO 08/27/16 21:00 09/26/16 20:59 08/27/16 20:36 100 MG Meclizine HCl (Antivert Tab) 25 mg TID PRN PO 08/27/16 15:15 09/26/16 15:14 Piperacillin Sod/ Tazobactam Sod 4.5 gm/Dextrose 120 ml @ 30 mls/hr Q8H IV 08/27/16 18:00 09/06/16 13:59 08/28/16 10:58 30 MLS/HR Vancomycin HCl 1500 mg/Sodium Chloride 530 ml @ 200 mls/hr Q12H IV 08/28/16 18:00 09/06/16 17:59 Review of Systems Constitutional: No fever, No chills Eyes: No problem reported ENT: No problem reported Respiratory: No problem reported Cardiovascular: No problem reported Abdomen: No problem reported Musculoskeletal: + joint pain, + swelling Genitourinary - Female: No problem reported Neurologic: No problem reported Psychiatric: No problem reported Endocrine: No problem reported Hematologic / Lymphatic: No problem reported Integumentary: + new/changing skin lesions Allergic / Immunologic: No problem reported Physical Exam Date Time Temp Pulse Resp B/P (MAP) Pulse Ox O2 Delivery O2 Flow Rate FiO2 08/28/16 15:10 36.6 71 16 112/69 (83) 91 Room Air 08/28/16 14:00 87 16 120/71 (87) 92 08/28/16 12:05 75 18 112/56 (74) 94 08/28/16 11:35 76 18 103/63 (76) 92 Room Air 08/28/16 11:05 81 18 107/61 (76) 93 Room Air 08/28/16 10:35 36.7 73 16 126/67 (86) 97 Nasal Cannula 2.0 08/28/16 10:35 Nasal Cannula 2.0 08/28/16 10:21 72 20 134/62 96 Nasal Cannula 2 08/28/16 10:15 36.8 75 16 100/78 96 Nasal Cannula 2 08/28/16 10:05 74 14 134/55 96 Nasal Cannula 2 08/28/16 09:55 78 16 126/76 97 Mask 10 08/28/16 09:49 72 15 136/62 98 Mask 10 08/28/16 09:42 78 16 140/98 98 Mask 10 08/28/16 09:38 37.9 78 16 140/98 98 Mask 10 08/28/16 07:00 37.0 72 18 138/72 (94) 93 Room Air 08/27/16 23:45 Room Air 08/27/16 22:53 37.0 86 16 133/71 (91) 90 Room Air 08/27/16 20:35 80 122/70 (87) 08/27/16 17:05 Room Air 08/27/16 17:05 36.9 84 18 137/76 (96) 93 Room Air 08/27/16 17:03 78 16 119/55 95 General Appearance: WD/WN, no apparent distress, + obese Head: normocephalic, atraumatic Eyes: normal inspection, EOMI, sclerae normal ENT: normal ENT inspection, pharynx normal Neck: supple, no adenopathy, thyroid normal, trachea midline Respiratory/Chest: chest non-tender, lungs clear, normal breath sounds, no respiratory distress Cardiovascular: regular rate, rhythm, no gallop, no murmur Abdomen/GI: normal bowel sounds, non tender, soft, no organomegaly Back: normal inspection, no CVA tenderness Extremities/Musculoskelatal: no calf tenderness, normal capillary refill Neurologic/Psych: alert, normal mood/affect, oriented x 3 Skin: normal color, no rash, + pertinent finding (Surgical dressing in place left hip) Lymphatic: no adenopathy Laboratory Results Date/Time Source Procedure Growth Status 08/28/16 08:45 Tissue Hip , Left Gram Stain - Final Resulted 08/28/16 08:45 Tissue Hip , Left Bacterial Culture Pending Resulted 08/28/16 08:30 Abscess Hip , Left Gram Stain - Final Resulted 08/28/16 08:30 Abscess Hip , Left Bacterial Culture Pending Resulted Last 24 Hours Test 08/28/16 06:25 White Blood Count 11.46 K/uL Red Blood Count 3.48 M/uL Hemoglobin 9.9 g/dL Hematocrit 30.9 % Mean Corpuscular Volume 88.8 fL Mean Corpuscular Hemoglobin 28.4 pg Mean Corpuscular Hemoglobin Concent 32.0 g/dl RDW Standard Deviation 47.8 fL RDW Coefficient of Variation 14.6 % Platelet Count 316 K/uL Mean Platelet Volume 10.2 fL Sodium Level 144 mmol/L Potassium Level 3.4 mmol/L Chloride Level 108 mmol/L Carbon Dioxide Level 28 mmol/L Anion Gap 8.0 mmol/L Blood Urea Nitrogen 17 mg/dl Creatinine 0.80 mg/dl Est Creatinine Clear Calc Drug Dose 86.4 ml/min Estimated GFR () 88.4 Estimated GFR (Non- 76.3 BUN/Creatinine Ratio 21.5 Random Glucose 104 mg/dl Calcium Level 8.4 mg/dl Patient Name: JEAN MORALES Unit Number: [id number] Dictated: 08/27/161630 Transcribed: 08/27/161630 MS Printed Date/Time: [~ rep prt dt]/[~ rep prt tm] [~ rep ct labl] - [~ rep ct ivnm] [facility] Radiology Department [place] [id number] Dictated: 08/27/161630 Transcribed: 08/27/161630 MS Printed Date/Time: [~ rep prt dt]/[~ rep prt tm] [~ rep ct labl] - [~ rep ct ivnm] CT OF THE LEFT HIP CT DOSE: HISTORY: Abscess abscess lateral to hip TECHNIQUE: Multiaxial CT images of the left hip were performed and reformatted in the sagittal and coronal plane without the use of contrast. COMPARISON: None. FINDINGS: Large collection lateral to the patient's total left hip prosthetic. This involves the muscular structures as well as extending to the skin surface. The lateral skin surface is thickened. Maximum collection cephalocaudal dimension is approximately 10 cm. Maximum transaxial dimensions are 14 x 6 cm. There appears to be direct extension to the lateral margin of the patient's left hip. Moderate infiltrative change of the musculature lateral to left hip is present. Based on this appearance there is a high suspicion of the left hip joint infection. There is evidence for old fracture involving the lateral aspect of the greater trochanter. Early bony involvement potentially is present at the superior aspect of the primary femoral shaft. There is no definitive involvement of the acetabular underlying bone or acetabular prosthetic. Nevertheless, a secondary joint infection must be diagnosis of exclusion. There is moderate infiltrative change surrounding the large abscess. A secondary collection is not seen. There is no evidence for acute fracture or dislocation. IMPRESSION: 1. Large soft tissue abscess/infection involving primarily the subcutaneous fat lateral to the left hip. 2. This appears to directly extend to the patient's total left hip prosthetic with a high suspicion for a secondary joint infection. 3. Dimensions are as discussed above with evidence for secondary skin thickening, fistulous tract formation, and potential underlying localized early bony destructive change involving the residual superior greater trochanter Electronically signed by: Jackson Giraldo M.D. 08/27/2016 4:47 PM Dictated Date/Time: 08/27/2016 4:31 PM The status of this report is Signed. Draft = Not yet reviewed or approved by Radiologist. Signed = Reviewed and approved by Radiologist. <AttendingPhy></AttendingPhy> <FamilyPhy>Kassi White D.O.</FamilyPhy> < PrimaryPhy>Kassi White D.O.</PrimaryPhy> <UnitNumber>[id number]</ UnitNumber> <VisitNumber>[id number]</VisitNumber> <PatientName>JEAN MORALES< /PatientName> <DateOfBirth>1950</DateOfBirth> <Location>[facility]</Location> < ServiceDate>08/27/16</ServiceDate> <MNE>ESINDI</MNE> <OrderingPhy>Jonatan Koch DO</OrderingPhy> <OrderingPhyMNE>f rep ord dr edwards</OrderingPhyMNE> < DictatingPhyMNE>f rep dict dr edwards</DictatingPhyMNE> <CCListMNE>f rep ct mne</ CCListMNE> <AdmittingPhyMNE>f pt admit dr edwards</AdmittingPhyMNE> <AttendingPhyMNE >f pt attend dr edwards</AttendingPhyMNE> <ConsultingPhyMNE>f pt consult dr edwards</ConsultingPhyMNE> <FamilyPhyMNE>f pt fam dr edwards</FamilyPhyMNE> <OtherPhyMNE>f pt other dr edwards</OtherPhyMNE> < PrimaryPhyMNE>f pt prim care dr edwards</PrimaryPhyMNE> <ReferringPhyMNE>f pt referring dr edwards</ReferringPhyMNE> Assessment & Plan 66-year-old female with left hip abscess following remote left hip surgery, suspect will be staphylococcal based on Gram stain results. For now, vancomycin appropriate therapy. I will adjust once final culture results are available. Likely will require outpatient IV antibiotics. Will discuss with Orthopedics. Will follow.
--- NOTE | 2016-08-28 16:57 | Progress Note ---
Internal Med Progress Note Date of Service: Aug 28, 2016. Provider Documentation: SUBJECTIVE: s/p I and D of left hip afebrile no pain no sob or cough No complaints OBJECTIVE: Vital Signs-as noted below Exam: General-alert and awake. Not in distress ENT-Normal hearing Neck-no neck masses, supple Lungs-cta b/l no wheezing or crackles Heart-s1 and s2 heard regular , no murmurs Abdomen-soft bowel sounds present non tender no distension Extremities- no edema present no erythema s/p Left hip I and D Neuro-alert and awake moves extremities Lab data as noted below. ASSESSMENT & PLAN: LEFT HIP CELLULITIS In area of healed incision from prior L AMADOR October 2015 Was started on Augmentin and Keflex as outpatient Started on IV vancomycin and Zosyn- s/p I and D by ortho await cx ID consulted will monitor RESOLVING MALACHI As per H and P:Outpatient labs 08/26/16 showed creatinine 1.8 from baseline 1.0; improved to 1.2 on presentation. received fluids in ER Holding furosemide and HCTZ CR 0.8 today will f/u labs HYPERTENSION on losartan Holding HCTZ and furosemide f will monitor DEPRESSION on Celexa- dose increased by PCP on 08/26/16 stable DVT PROPHYLAXIS Heparin SQ DISPOSITION To be determined Vital Signs: Date Time Temp Pulse Resp B/P (MAP) Pulse Ox O2 Delivery O2 Flow Rate FiO2 08/28/16 15:10 36.6 71 16 112/69 (83) 91 Room Air 08/28/16 14:00 87 16 120/71 (87) 92 08/28/16 12:05 75 18 112/56 (74) 94 08/28/16 11:35 76 18 103/63 (76) 92 Room Air 08/28/16 11:05 81 18 107/61 (76) 93 Room Air 08/28/16 10:35 36.7 73 16 126/67 (86) 97 Nasal Cannula 2.0 08/28/16 10:35 Nasal Cannula 2.0 08/28/16 10:21 72 20 134/62 96 Nasal Cannula 2 08/28/16 10:15 36.8 75 16 100/78 96 Nasal Cannula 2 08/28/16 10:05 74 14 134/55 96 Nasal Cannula 2 08/28/16 09:55 78 16 126/76 97 Mask 10 08/28/16 09:49 72 15 136/62 98 Mask 10 08/28/16 09:42 78 16 140/98 98 Mask 10 08/28/16 09:38 37.9 78 16 140/98 98 Mask 10 08/28/16 07:00 37.0 72 18 138/72 (94) 93 Room Air 08/27/16 23:45 Room Air 08/27/16 22:53 37.0 86 16 133/71 (91) 90 Room Air 08/27/16 20:35 80 122/70 (87) 08/27/16 17:05 Room Air 08/27/16 17:05 36.9 84 18 137/76 (96) 93 Room Air 08/27/16 17:03 78 16 119/55 95 Lab Results: Results Past 24 Hours Test 08/28/16 06:25 Range/Units White Blood Count 11.46 4.8-10.8 K/uL Red Blood Count 3.48 4.2-5.4 M/uL Hemoglobin 9.9 12.0-16.0 g/dL Hematocrit 30.9 37-47 % Mean Corpuscular Volume 88.8 80-100 fL Mean Corpuscular Hemoglobin 28.4 25-34 pg Mean Corpuscular Hemoglobin Concent 32.0 32-36 g/dl RDW Standard Deviation 47.8 36.4-46.3 fL RDW Coefficient of Variation 14.6 11.5-14.5 % Platelet Count 316 130-400 K/uL Mean Platelet Volume 10.2 7.4-10.4 fL Sodium Level 144 136-145 mmol/L Potassium Level 3.4 3.5-5.1 mmol/L Chloride Level 108 98-107 mmol/L Carbon Dioxide Level 28 21-32 mmol/L Anion Gap 8.0 3-11 mmol/L Blood Urea Nitrogen 17 7-18 mg/dl Creatinine 0.80 0.60-1.20 mg/dl Est Creatinine Clear Calc Drug Dose 86.4 ml/min Estimated GFR () 88.4 Estimated GFR (Non- 76.3 BUN/Creatinine Ratio 21.5 10-20 Random Glucose 104 70-99 mg/dl Calcium Level 8.4 8.5-10.1 mg/dl Microbiology Results 08/28/16 Gram Stain - Final, Resulted 08/28/16 Bacterial Culture, Resulted Pending 08/28/16 Gram Stain - Final, Resulted 08/28/16 Bacterial Culture, Resulted Pending
[2016-08-28] MEDS ORDERED: NURSING VERBAL MED ORDER ONE (17:30)
[2016-08-28] MEDS: VANCOMYCIN INJ 1,500 MG in SODIUM CHLORIDE 0.9% 500ML 500 ML IV SCH (18:51)
[2016-08-28] MEDS: LATANOPROST 0.005% OP SOLN 2.5 ML BTL OPB SCH (21:26)
[2016-08-28] MEDS: LOSARTAN POTASSIUM 50 MG TAB PO SCH (21:27)
[2016-08-28] MEDS: HEPARIN SOD 5000 UNIT/0.5 ML CARP SQ SCH (22:19)
[2016-08-29] MEDS: PIPERACILL/TAZOBAC IV 4.5 GM in DEXTROSE 5% 100ML 100 ML IV SCH ×2 (02:14→09:13)
[2016-08-29 03:59] VITALS: BP 119/70; PULSE 67; TEMP 36.5; O2SAT 94
[2016-08-29] MEDS: VANCOMYCIN INJ 1,500 MG in SODIUM CHLORIDE 0.9% 500ML 500 ML IV SCH ×2 (06:15→18:12)
[2016-08-29] MEDS: HEPARIN SOD 5000 UNIT/0.5 ML CARP SQ SCH ×3 (06:16→21:16)
[2016-08-29 07:10] LABS: CREATININE 0.83 mg/dl (0.60-1.20)
[2016-08-29 07:15] VITALS: BP 105/65; PULSE 62; TEMP 36.4; O2SAT 94
[2016-08-29] MEDS: CEROVITE ADV FORMULA TAB PO SCH (08:37)
[2016-08-29] MEDS: ASPIRIN 325 MG ECTAB PO SCH (08:37)
[2016-08-29] MEDS: CALCIUM 600MG + VIT D 400 IU TAB PO SCH ×2 (08:38→21:21)
[2016-08-29] MEDS: CITALOPRAM 40 MG TAB PO SCH (08:38)
--- NOTE | 2016-08-29 08:56 | PROGRESS NOTE ---
DATE: 08/29/2016 CHIEF COMPLAINT: Status post I and D abscess of the left hip, postoperative day #1. PROGRESS: Johana was seen and examined at bedside today. Overall, she is doing very well. She says her hip already feels better than it did before the surgery. She has been up walking today, has no hip pain and no complaints. PHYSICAL EXAMINATION: LEFT HIP: The dressing is clean and dry and the drain is to suction. Her leg lengths are equal. VITAL SIGNS: All stable on room air. She is voiding on her own. LABS: Micro, all cultures are still pending. IMPRESSION: Status post incision and drainage, large left hip abscess. PLAN: The abscess was in the subcutaneous tissue, went through the fascial layer, but did not go into the hip joint itself. It did not penetrate through the capsule. She is currently on vancomycin and Zosyn and we are waiting cultures as well as infectious disease recommendations. In the meantime, she can be up and weightbearing as tolerated. We will continue to follow her closely.
[2016-08-29 15:00] VITALS: BP 108/64; PULSE 69; TEMP 36.6; O2SAT 94
[2016-08-29] MEDS ORDERED: VANCOMYCIN TROUGH SCH (15:30)
--- NOTE | 2016-08-29 16:28 | Progress Note ---
Internal Med Progress Note Date of Service: Aug 29, 2016. Provider Documentation: SUBJECTIVE: s/p I and D of left hip sitting on the chair comfortably afebrile says ambulated ok no pain eating ok moved bowels OBJECTIVE: Vital Signs-as noted below Exam: General-alert and awake. Not in distress ENT-Normal hearing Neck-no neck masses, supple Lungs-cta b/l no wheezing or crackles Heart-s1 and s2 heard regular , no murmurs Abdomen-soft bowel sounds present non tender no distension Extremities- no edema present no erythema s/p Left hip I and D. Dressing and drain intact Neuro-alert and awake moves extremities Lab data as noted below. ASSESSMENT & PLAN: LEFT HIP CELLULITIS In area of healed incision from prior L AMADOR October 2015 Was started on Augmentin and Keflex as outpatient Started on IV vancomycin and Zosyn- s/p I and D by ortho await final cx- staph ID consulted duration of abx as per ID RESOLVING MALACHI As per H and P:Outpatient labs 08/26/16 showed creatinine 1.8 from baseline 1.0; improved to 1.2 on presentation. received fluids in ER Holding furosemide CR 0.8 today will f/u labs HYPERTENSION on losartan will monitor DEPRESSION on Celexa- dose increased by PCP on 08/26/16 stable DVT PROPHYLAXIS Heparin SQ DISPOSITION To be determined Vital Signs: Date Time Temp Pulse Resp B/P (MAP) Pulse Ox O2 Delivery O2 Flow Rate FiO2 08/29/16 15:00 36.6 69 16 108/64 (79) 94 08/29/16 08:46 Room Air 08/29/16 07:15 36.4 62 15 105/65 (78) 94 Room Air 08/29/16 03:59 36.5 67 16 119/70 (86) 94 Room Air 08/29/16 00:00 Room Air 08/28/16 23:06 36.6 68 14 110/68 (82) 91 Room Air 08/28/16 21:31 76 105/67 (80) 08/28/16 19:20 36.5 68 18 116/77 (90) 92 Room Air Lab Results: Results Past 24 Hours Test 08/29/16 06:18 Range/Units Creatinine 0.83 0.60-1.20 mg/dl Est Creatinine Clear Calc Drug Dose 83.3 ml/min Estimated GFR () 84.6 Estimated GFR (Non- 73.0
[2016-08-29] MEDS: LOSARTAN POTASSIUM 50 MG TAB PO SCH (21:21)
[2016-08-29] MEDS: LATANOPROST 0.005% OP SOLN 2.5 ML BTL OPB SCH (21:21)
[2016-08-29 23:10] VITALS: BP 130/72; PULSE 81; TEMP 36.6; O2SAT 95
[2016-08-29] MEDS: TRAMADOL HCL 50 MG TAB PO PRN (23:26)
[2016-08-30] MEDS ORDERED: VANCOMYCIN TROUGH SCH (05:30)
[2016-08-30 05:38] LABS: HEMATOCRIT 28.7 % (37-47); MEAN CELL VOLUME 90.3 fL (80-100); MEAN CORPUSCULAR HEMOGLOBIN 27.7 pg (25-34); MEAN CORPUSCULAR HGB CONC 30.7 g/dl (32-36); MEAN PLATELET VOLUME 9.6 fL (7.4-10.4); PLATELET COUNT 372 K/uL (130-400); RED BLOOD COUNT 3.18 M/uL (4.2-5.4); WHITE BLOOD COUNT 11.51 K/uL (4.8-10.8)
[2016-08-30] MEDS: VANCOMYCIN INJ 1,500 MG in SODIUM CHLORIDE 0.9% 500ML 500 ML IV SCH (05:48)
[2016-08-30] MEDS: HEPARIN SOD 5000 UNIT/0.5 ML CARP SQ SCH ×3 (05:52→21:58)
[2016-08-30 07:24] VITALS: BP 108/67; PULSE 79; TEMP 36.6; O2SAT 95
--- NOTE | 2016-08-30 07:35 | OPERATIVE REPORT ---
DATE OF OPERATION: 08/28/2016 PREOPERATIVE DIAGNOSIS: Large abscess of the left hip. POSTOPERATIVE DIAGNOSIS: Same. PROCEDURE: Irrigation and debridement of abscess of the left hip. SURGEON: Dr. Jonatan Koch. PRISON GUARD: Woodrow Ivy PA-C, whose assistance was necessary for positioning of the leg and helping with instrumentation. ANESTHESIA: General. COMPLICATIONS: None. CONDITION: Stable to PACU. INDICATIONS: Johana is a pleasant 66-year-old female, who underwent a left total hip arthroplasty on 11/10/2015. She has done extremely well postoperatively and been very happy to have her hip replaced. About a week and a half ago, she began having some itching and soreness at the incision site. She was seen in my office and diagnosed with possible cellulitis. Unfortunately, it quickly progressed and she was getting some drainage. CT scan of the hip did show an abscess that extended down towards the prosthesis. Decision was made to do an I&D with possible component exchange of the hip if the infection went deep. On 08/28/2016, she was brought down from her hospital room to the preoperative holding area and the operative extremity was identified and signed. She was already on preoperative antibiotics including vancomycin and Zosyn that was started in the Emergency Room. She was taken back to the operating room, laid on the table in supine position and put under general anesthesia. She was then put in the lateral decubitus position. The left hip was prepped and draped in sterile fashion. Time-out was done and the patient and operative extremity was properly identified. The old incision was opened up. There was a very large amount of pus and purulent material that came out of the hip. A culture was obtained. Once the majority of the abscess was evacuated, the surrounding soft tissue capsule was completely excised. Three tissue specimens were sent for culture as well. The abscess did go down to the tensor fascia. There was a small hole in the tensor fascia about the size of my finger. The infection obviously went deep to the fascia, although it did not seem to be very infected. The fascia was opened up with Jensen scissors. The tissue in that area did not look bad and it was vigorously irrigated and debrided. At no point that could I find any tract that went down to the hip joint itself. I put the hip through a full range of motion and I would have to make an arthrotomy to get into the hip joint. She was not having any pain in her hip, so at this point, I elected to leave it alone. All surrounding tissues were once again debrided to ensure that I removed all contaminated tissue. The entire hip was irrigated with 9 liters of normal saline solution, some with bacitracin. A Betadine soak was then used for 3 minutes and then that was irrigated with an additional 3 liters of normal saline solution. The fascia was then closed with #1 Prolene and two drains were placed. The deep fat was closed with PDS sutures and skin was closed with Vicryl and chaz. She was then extubated, transferred to a [facility] and taken to the postanesthesia care unit in stable condition. She tolerated the procedure well. I attest to the content of the Intraoperative Record and any orders documented therein. Any exception s are noted below.
[2016-08-30] MEDS: CEROVITE ADV FORMULA TAB PO SCH (08:18)
[2016-08-30] MEDS: ASPIRIN 325 MG ECTAB PO SCH (08:18)
[2016-08-30] MEDS: CALCIUM 600MG + VIT D 400 IU TAB PO SCH ×2 (08:18→20:42)
[2016-08-30] MEDS: CITALOPRAM 40 MG TAB PO SCH (08:18)
[2016-08-30] MEDS: CEFAZOLIN IV 2,000 MG in DEXTROSE 5% 50ML 50 ML IV SCH ×2 (11:48→20:05)
--- NOTE | 2016-08-30 12:48 | Clinical Documentation Query ---
CLINICAL DOCUMENTATION QUERY Dr. JAMES, In your clinical opinion is this patient being managed for: ( ) L hip infection due to prior L AMADOR ( ) Other explanation of clinical findings (Please Explain) ( + ) Unable to determine (Please Define) ( ) Need to Discuss ( ) Not Agree I am not sure but I think Ortho can comment on this matter The medical record reflects the following clinical findings, treatment, and risk factors. Clinical Indicators:66 yo female presenting with increasing hip pain. CT hip showed Large soft tissue abscess/infection primarily in the SQ fat lateral to the L hip Treatment: Ortho consult, IV vancomycin, IV zosyn, OR for debridement of L hip, ID consult Risk Factors: age, morbid obesity, prior L AMADOR Please clarify and document your clinical opinion in the progress notes and discharge summary. Terms such as "probable", "suspected", "likely", "questionable", "possible", or "still to be ruled out" are acceptable. IF IN AGREEMENT, YOU MUST DOCUMENT ABOVE DIAGNOSTIC STATEMENT IN DAILY PROGRESS NOTES AND DISCHARGE SUMMARY. This document is not part of the patient's record. Thank You, Yoselin [place], [place] [phone]
[2016-08-30] MEDS ORDERED: POTASSIUM CHLORIDE 10 MEQ TABCR PO STA (12:50)
--- NOTE | 2016-08-30 12:50 | Clinical Documentation Query ---
CLINICAL DOCUMENTATION QUERY Ms. GRANT, In your clinical opinion is this patient being managed for: ( ) L hip infection due to prior L AMADOR ( ) Other explanation of clinical findings (Please Explain) ( ) Unable to determine (Please Define) ( ) Need to Discuss ( ) Not Agree The medical record reflects the following clinical findings, treatment, and risk factors. Clinical Indicators:66 yo female presenting with increasing hip pain. CT hip showed Large soft tissue abscess/infection primarily in the SQ fat lateral to the L hip Treatment: Ortho consult, IV vancomycin, IV zosyn, OR for debridement of L hip, ID consult Risk Factors: age, morbid obesity, prior L AMADOR Please clarify and document your clinical opinion in the progress notes and discharge summary. Terms such as "probable", "suspected", "likely", "questionable", "possible", or "still to be ruled out" are acceptable. IF IN AGREEMENT, YOU MUST DOCUMENT ABOVE DIAGNOSTIC STATEMENT IN DAILY PROGRESS NOTES AND DISCHARGE SUMMARY. This document is not part of the patient's record. Thank You, Yoselin [place], RN [phone] [facility], can you please refer this to the attending physician Dr. Fernnadez. I am no longer involved in the care of the patient and will not be able to document the opinion in progress notes and discharge summary. Thank you.
--- NOTE | 2016-08-30 12:51 | Clinical Documentation Query ---
CLINICAL DOCUMENTATION QUERY Dr. KIRK, In your clinical opinion is this patient being managed for: ( ) L hip infection due to prior L AMADOR ( ) Other explanation of clinical findings (Please Explain) (X ) Unable to determine (Please Define) doing well for 10 months without hip pain then developed abscess. Abscess did not extend down to the hip joint. Not sure why abscess showed up 10 months out. Maybe post operative subcutaneous seroma that started to slowly grow bacteria and took 10 months to show up? ( ) Need to Discuss ( ) Not Agree The medical record reflects the following clinical findings, treatment, and risk factors. Clinical Indicators:66 yo female presenting with increasing hip pain. CT hip showed Large soft tissue abscess/infection primarily in the SQ fat lateral to the L hip Treatment: Ortho consult, IV vancomycin, IV zosyn, OR for debridement of L hip, ID consult Risk Factors: age, morbid obesity, prior L AMADOR Please clarify and document your clinical opinion in the progress notes and discharge summary. Terms such as "probable", "suspected", "likely", "questionable", "possible", or "still to be ruled out" are acceptable. IF IN AGREEMENT, YOU MUST DOCUMENT ABOVE DIAGNOSTIC STATEMENT IN DAILY PROGRESS NOTES AND DISCHARGE SUMMARY. This document is not part of the patient's record. Thank You, Yoselin Angeles RN [phone]
--- NOTE | 2016-08-30 14:19 | Progress Note ---
Internal Med Progress Note Date of Service: Aug 30, 2016. Provider Documentation: SUBJECTIVE: The patient was seen and examined OOB on a chair Denies any pain at rest OBJECTIVE: Vital Signs-as noted below Exam: General-No distress at rest Eyes-normal ENT-Normal Neck-supple Lungs-clear to ausucltate bilaterally Heart-Regular Abdomen-Benign,no masses,bowel sound present Extremities-trace edema bilaterally Neuro-AAOx3 Lab data as noted below. ASSESSMENT & PLAN: LEFT HIP CELLULITIS WITH ABSCESS In area of healed incision from prior L AMADOR October 2015 Was started on Augmentin and Keflex as outpatient Started on IV vancomycin and Zosyn ON ADMISSION S/P I and D by ortho c/s is noted ID consulted and will await for the recommendation RESOLVING MALACHI Outpatient labs 08/26/16 showed creatinine 1.8 from baseline 1.0; improved to 1.2 on presentation. Received fluids in ER Hold Lasix Creatinine normalized HYPERTENSION On losartan Remains stable DEPRESSION On Celexa- dose increased by PCP on 08/26/16 stable DVT PROPHYLAXIS Heparin SQ DISPOSITION To be determined PT/OT evaluation Vital Signs: Date Time Temp Pulse Resp B/P (MAP) Pulse Ox O2 Delivery O2 Flow Rate FiO2 08/30/16 11:30 Room Air 08/30/16 08:05 Room Air 08/30/16 07:24 36.6 79 19 108/67 (81) 95 Room Air 08/29/16 23:25 Room Air 08/29/16 23:10 36.6 81 18 130/72 (91) 95 Room Air 08/29/16 16:30 Room Air 08/29/16 15:00 36.6 69 16 108/64 (79) 94 Lab Results: Results Past 24 Hours Test 08/30/16 05:28 Range/Units White Blood Count 11.51 4.8-10.8 K/uL Red Blood Count 3.18 4.2-5.4 M/uL Hemoglobin 8.8 12.0-16.0 g/dL Hematocrit 28.7 37-47 % Mean Corpuscular Volume 90.3 80-100 fL Mean Corpuscular Hemoglobin 27.7 25-34 pg Mean Corpuscular Hemoglobin Concent 30.7 32-36 g/dl RDW Standard Deviation 49.3 36.4-46.3 fL RDW Coefficient of Variation 14.8 11.5-14.5 % Platelet Count 372 130-400 K/uL Mean Platelet Volume 9.6 7.4-10.4 fL Creatinine 1.00 0.60-1.20 mg/dl Est Creatinine Clear Calc Drug Dose 69.1 ml/min Estimated GFR () 67.5 Estimated GFR (Non- 58.3 Vancomycin Level Trough 20.0 SEE COMMENT mcg/ml
--- NOTE | 2016-08-30 14:37 | Infectious Disease Progress Nt ---
Progress Note Date of Service Aug 30, 2016. Subjective Pt evaluation today including: conversation w/ patient, physical exam, chart review, lab review, review of studies, conversation w/ student union consultant, review of inpatient medication list Patient now feeling better, less pain in her hip. Remains afebrile. Cultures have grown a methicillin sensitive Staph aureus. All Other Systems: Reviewed and Negative Medications Current Inpatient Medications Medications (Trade) Dose Ordered Sig/Reginaldo Route Start Time Stop Time Status Last Admin Dose Admin Heparin Sodium (Porcine) (Heparin Sq 5000 Unit/0.5ml) 5,000 unit Q8 SQ 08/27/16 22:00 09/26/16 21:59 Future hold 08/30/16 14:19 5,000 UNIT Acetaminophen (Tylenol Tab) 650 mg Q4H PRN PO 08/27/16 15:00 09/26/16 14:59 Ondansetron HCl (Zofran Inj) 4 mg Q6H PRN IV 08/27/16 15:00 09/26/16 14:59 Aspirin (Ecotrin Tab) 325 mg DAILY PO 08/28/16 09:00 09/27/16 08:59 08/30/16 08:18 325 MG Citalopram Hydrobromide (celeXA TAB) 40 mg DAILY PO 08/28/16 09:00 09/27/16 08:59 08/30/16 08:18 40 MG Latanoprost (Xalatan Oph Soln) 1 drops HS OPB 08/27/16 21:00 09/26/16 20:59 08/29/16 21:21 1 DROPS Multivitamins/ Minerals (Multivitamin W/ Minerals Tab) 1 tab DAILY PO 08/28/16 09:00 09/27/16 08:59 08/30/16 08:18 1 TAB Tramadol HCl (Ultram Tab) 100 mg Q6H PRN PO 08/27/16 15:15 09/26/16 15:14 08/29/16 23:26 100 MG Calcium/Vitamin D (Caltrate Plus Tab) 1 tab BID PO 08/27/16 21:00 09/26/16 20:59 08/30/16 08:18 1 TAB Losartan Potassium (coZAAR TAB) 100 mg HS PO 08/27/16 21:00 09/26/16 20:59 08/29/16 21:21 100 MG Meclizine HCl (Antivert Tab) 25 mg TID PRN PO 08/27/16 15:15 09/26/16 15:14 Cefazolin Sodium 2000 mg/Dextrose 60 ml @ 100 mls/hr Q8H IV 08/30/16 12:00 10/11/16 11:59 08/30/16 11:48 100 MLS/HR Objective Vital Signs Date Time Temp Pulse Resp B/P (MAP) Pulse Ox O2 Delivery O2 Flow Rate FiO2 08/30/16 11:30 Room Air 08/30/16 08:05 Room Air 08/30/16 07:24 36.6 79 19 108/67 (81) 95 Room Air 08/29/16 23:25 Room Air 08/29/16 23:10 36.6 81 18 130/72 (91) 95 Room Air 08/29/16 16:30 Room Air 08/29/16 15:00 36.6 69 16 108/64 (79) 94 Physical Exam General Appearance: WD/WN, no apparent distress Eyes: normal inspection, sclerae normal ENT: normal ENT inspection, pharynx normal Neck: supple, no adenopathy, trachea midline Respiratory/Chest: chest non-tender, lungs clear, normal breath sounds, no respiratory distress Cardiovascular: regular rate, rhythm, no gallop, no murmur Abdomen: normal bowel sounds, non tender, soft, no organomegaly Extremities: non-tender, no calf tenderness Neurologic/Psychiatric: alert, oriented x 3 Skin: normal color, no rash, + pertinent finding (Dressing in place left hip) Lymphatic: no adenopathy Laboratory Results RUN DATE: 08/30/16 [facility] LAB PAGE 1 RUN TIME: 1151 Specimen Inquiry PATIENT: ANDREWJEAN Early LOC: COSMO Shaver # : [id number] AGE/SX: 66/F ROOM: N381 REG : 08/27/[address]: Leslie Ag M.D. : 1950 BED: 1 DIS : STATUS: ADM IN TLOC: SPEC #: [id number] KAMARI: 08/28/16 STATUS: RES REQ #: [id number] RECD: 08/28/[address]: Rafael Fernandez MD SOURCE: ABSCESS ENTR: 08/28/[address]: Leslie Ag M.D. SPDESC: Breonna MUÑOZ Allison B. D.O. Spencer, Brian A., DO ORDERED: AER/MONICA CULTSMR Procedure Result Verified Site GRAM STAIN Final 08/28/16-4281 RESULT MANY WBCs SEEN MODERATE GRAM POSITIVE COCCI OR AER/MONICA CULT Preliminary 08/30/16-1150 Organism 1 STAPHYLOCOCCUS AUREUS QUANITY MODERATE SENS SENSITIVITY TO FOLLOW 1. STAPHYLOCOCCUS AUREUS Target Route Dose RX AB Cost M.I.C. IQ ------ ----- ------ -- ------ -------- - ------ TRIMET/SULFA S <=0.5/ 9.5 * OXACILLIN S <=0.25 VANCOMYCIN S 2 ERYTHROMYCIN R >4 TETRACYCLINE S <=4 CLINDAMYCIN R <=0.5 DAPTOMYCIN S 1 S = SENSITIVE I = INTERMEDIATE R = RESISTANT Last 24 Hours Test 08/30/16 05:28 White Blood Count 11.51 K/uL Red Blood Count 3.18 M/uL Hemoglobin 8.8 g/dL Hematocrit 28.7 % Mean Corpuscular Volume 90.3 fL Mean Corpuscular Hemoglobin 27.7 pg Mean Corpuscular Hemoglobin Concent 30.7 g/dl RDW Standard Deviation 49.3 fL RDW Coefficient of Variation 14.8 % Platelet Count 372 K/uL Mean Platelet Volume 9.6 fL Creatinine 1.00 mg/dl Est Creatinine Clear Calc Drug Dose 69.1 ml/min Estimated GFR () 67.5 Estimated GFR (Non- 58.3 Vancomycin Level Trough 20.0 mcg/ml Assessment and Plan 66-year-old female with left hip abscess following remote left hip surgery, with cultures positive for methicillin sensitive Staph aureus. I have changed the patient to IV cefazolin. If patient is going to rehab, then this medication can be continued. If she will be doing outpatient antibiotics, may want to consider change to ceftriaxone or daptomycin. She will likely require several weeks of antibiotics IV. We will follow.
[2016-08-30 14:52] VITALS: BP 121/71; PULSE 69; TEMP 36.5; O2SAT 93
--- NOTE | 2016-08-30 17:03 | PROGRESS NOTE ---
DATE: 08/30/2016 CHIEF COMPLAINT: Status post I&D of left hip abscess, postop day #2. PROGRESS: Johana was seen and examined at bedside today. Overall, she is doing very well. She has been up walking around and says she has no pain in her hip. She is happy with her progress and has no complaints. PHYSICAL EXAMINATION: LEFT HIP: The dressing is clean and dry and the drain is still to suction. She is neurovascularly intact. LABS: Today show an H&H of 8.8 and 28.7, her white count is trending down at 11.51. Her cultures grew out Staph aureus. IMPRESSION: Status post incision and drainage abscess of the left hip. PLAN: She has already been seen by infectious disease, stop the vancomycin and start her on Ancef 2 grams every 8 hours. She will likely need a PICC line placed before discharge. Orthopedically, she is stable for discharge tomorrow if she is able to get a PICC line placed and if infectious disease is comfortable with the antibiotic regimen then she can be discharged tomorrow. I will put an order for the nursing staff to pull the drain tomorrow morning.
[2016-08-30] MEDS ORDERED: VANCOMYCIN INJ 1,500 MG in SODIUM CHLORIDE 0.9% 500ML 500 ML IV SCH (20:00)
[2016-08-30] MEDS: LOSARTAN POTASSIUM 50 MG TAB PO SCH (20:42)
[2016-08-30] MEDS: LATANOPROST 0.005% OP SOLN 2.5 ML BTL OPB SCH (20:42)
[2016-08-30 23:22] VITALS: BP_SYST 165; BP_SYST 178; BP_DIAS 75; BP_DIAS 76; PULSE 83; TEMP 36.6; O2SAT 95
[2016-08-31 00:09] VITALS: BP_SYST 137; BP_SYST 166; BP_DIAS 74; BP_DIAS 85; PULSE 76
[2016-08-31] MEDS: CEFAZOLIN IV 2,000 MG in DEXTROSE 5% 50ML 50 ML IV SCH (04:19)
[2016-08-31] MEDS: HEPARIN SOD 5000 UNIT/0.5 ML CARP SQ SCH ×3 (05:23→22:01)
[2016-08-31 06:29] LABS: HEMATOCRIT 28.8 % (37-47); MEAN CELL VOLUME 90.6 fL (80-100); MEAN CORPUSCULAR HEMOGLOBIN 28.9 pg (25-34); MEAN CORPUSCULAR HGB CONC 31.9 g/dl (32-36); MEAN PLATELET VOLUME 9.7 fL (7.4-10.4); PLATELET COUNT 382 K/uL (130-400); RED BLOOD COUNT 3.18 M/uL (4.2-5.4); WHITE BLOOD COUNT 8.57 K/uL (4.8-10.8)
[2016-08-31 07:09] LABS: BUN/CREATININE RATIO 13.9 (10-20); CALCIUM 8.8 mg/dl (8.5-10.1); CREATININE 1.1 mg/dl (0.60-1.20); MAGNESIUM 1.5 mg/dl (1.8-2.4); POTASSIUM 4.1 mmol/L (3.5-5.1)
[2016-08-31] MEDS: CEROVITE ADV FORMULA TAB PO SCH (07:45)
[2016-08-31] MEDS: ASPIRIN 325 MG ECTAB PO SCH (07:45)
[2016-08-31] MEDS: CITALOPRAM 40 MG TAB PO SCH (07:46)
[2016-08-31] MEDS: CALCIUM 600MG + VIT D 400 IU TAB PO SCH ×2 (07:46→20:51)
[2016-08-31 07:59] VITALS: BP 162/82; PULSE 73; TEMP 36.7; O2SAT 94
[2016-08-31 09:08] VITALS: O2SAT 94
--- NOTE | 2016-08-31 09:55 | Infectious Disease Progress Nt ---
Progress Note Date of Service Aug 31, 2016. Subjective Pt evaluation today including: conversation w/ patient, physical exam, chart review, lab review, review of studies, conversation w/ python consultant, review of inpatient medication list Feels well. Pain better. No fever. Tolerating Abx. All Other Systems: Reviewed and Negative Medications Current Inpatient Medications Medications (Trade) Dose Ordered Sig/Reginaldo Route Start Time Stop Time Status Last Admin Dose Admin Heparin Sodium (Porcine) (Heparin Sq 5000 Unit/0.5ml) 5,000 unit Q8 SQ 08/27/16 22:00 09/26/16 21:59 Future hold 08/31/16 05:23 5,000 UNIT Acetaminophen (Tylenol Tab) 650 mg Q4H PRN PO 08/27/16 15:00 09/26/16 14:59 Ondansetron HCl (Zofran Inj) 4 mg Q6H PRN IV 08/27/16 15:00 09/26/16 14:59 Aspirin (Ecotrin Tab) 325 mg DAILY PO 08/28/16 09:00 09/27/16 08:59 08/31/16 07:45 325 MG Citalopram Hydrobromide (celeXA TAB) 40 mg DAILY PO 08/28/16 09:00 09/27/16 08:59 08/31/16 07:46 40 MG Latanoprost (Xalatan Oph Soln) 1 drops HS OPB 08/27/16 21:00 09/26/16 20:59 08/30/16 20:42 1 DROPS Multivitamins/ Minerals (Multivitamin W/ Minerals Tab) 1 tab DAILY PO 08/28/16 09:00 09/27/16 08:59 08/31/16 07:45 1 TAB Tramadol HCl (Ultram Tab) 100 mg Q6H PRN PO 08/27/16 15:15 09/26/16 15:14 08/29/16 23:26 100 MG Calcium/Vitamin D (Caltrate Plus Tab) 1 tab BID PO 08/27/16 21:00 09/26/16 20:59 08/31/16 07:46 1 TAB Losartan Potassium (coZAAR TAB) 100 mg HS PO 08/27/16 21:00 09/26/16 20:59 08/30/16 20:42 100 MG Meclizine HCl (Antivert Tab) 25 mg TID PRN PO 08/27/16 15:15 09/26/16 15:14 Cefazolin Sodium 2000 mg/Dextrose 60 ml @ 100 mls/hr Q8H IV 08/30/16 12:00 10/11/16 11:59 08/31/16 04:19 100 MLS/HR Objective Vital Signs Date Time Temp Pulse Resp B/P (MAP) Pulse Ox O2 Delivery O2 Flow Rate FiO2 08/31/16 09:08 94 Room Air 08/31/16 08:00 Room Air 08/31/16 07:59 36.7 73 16 162/82 (108) 94 Room Air 08/31/16 00:09 76 166/85 (112) 137/74 (95) 08/30/16 23:22 36.6 83 16 178/75 (109) 95 Room Air 165/76 (105) 08/30/16 23:15 Room Air 08/30/16 14:52 36.5 69 18 121/71 (88) 93 Room Air 08/30/16 11:30 Room Air Physical Exam General Appearance: WD/WN, no apparent distress Eyes: normal inspection, EOMI, sclerae normal ENT: normal ENT inspection, pharynx normal Neck: supple, no adenopathy, trachea midline Respiratory/Chest: chest non-tender, lungs clear, normal breath sounds, no respiratory distress Cardiovascular: regular rate, rhythm, no gallop, no murmur Abdomen: normal bowel sounds, non tender, soft, no organomegaly Extremities: non-tender, no calf tenderness Neurologic/Psychiatric: alert, oriented x 3 Skin: normal color, warm/dry, no rash, + pertinent finding (drain in place left hip) Lymphatic: no adenopathy Laboratory Results Last 24 Hours Test 08/31/16 06:15 White Blood Count 8.57 K/uL Red Blood Count 3.18 M/uL Hemoglobin 9.2 g/dL Hematocrit 28.8 % Mean Corpuscular Volume 90.6 fL Mean Corpuscular Hemoglobin 28.9 pg Mean Corpuscular Hemoglobin Concent 31.9 g/dl RDW Standard Deviation 49.0 fL RDW Coefficient of Variation 14.8 % Platelet Count 382 K/uL Mean Platelet Volume 9.7 fL Sodium Level 147 mmol/L Potassium Level 4.1 mmol/L Chloride Level 112 mmol/L Carbon Dioxide Level 28 mmol/L Anion Gap 7.0 mmol/L Blood Urea Nitrogen 15 mg/dl Creatinine 1.10 mg/dl Est Creatinine Clear Calc Drug Dose 62.8 ml/min Estimated GFR () 60.2 Estimated GFR (Non- 51.9 BUN/Creatinine Ratio 13.9 Random Glucose 100 mg/dl Calcium Level 8.8 mg/dl Magnesium Level 1.5 mg/dl Assessment and Plan 66-year-old female with left hip abscess following remote left hip surgery, with cultures positive for methicillin sensitive Staph aureus. Pt. to be treated as outpatient, so I have changed to IV ceftriaxone as daptomycin not feasible because of costs. Likely 2 weeks IV Rx followed by oral therapy. Will discuss.
[2016-08-31 10:20] VITALS: BP 145/85
[2016-08-31] MEDS: CEFTRIAXONE SOD INJ 2,000 MG in DEXTROSE 5% 50ML 50 ML IV SCH (10:53)
[2016-08-31] MEDS ORDERED: MAGNESIUM SULFATE 1GM / D5W 1 GM in PREMIXED IN D5W 100 ML IV ONE (13:15)
--- NOTE | 2016-08-31 14:06 | Progress Note ---
Internal Med Progress Note Date of Service: Aug 31, 2016. Provider Documentation: SUBJECTIVE: The patient was seen and examined OOB on a chair Denies any pain at rest Getting Physical Therapy Ready to be discharged OBJECTIVE: Vital Signs-as noted below Exam: General-No distress at rest Eyes-normal ENT-Normal Neck-supple Lungs-clear to ausucltate bilaterally Heart-Regular Abdomen-Benign,no masses,bowel sound present Extremities-trace edema bilaterally Neuro-AAOx3 Lab data as noted below. ASSESSMENT & PLAN: LEFT HIP CELLULITIS WITH ABSCESS In area of healed incision from prior [facility] October 2015 Was started on Augmentin and Keflex as outpatient Started on IV vancomycin and Zosyn ON ADMISSION S/P I and D by ortho Culture-Staph Aureus sensitive to Oxacillin ID consulted and will await for the recommendation PICC line ordered and Ceftriaxone iv for 2 weeks and then oral RESOLVING MALACHI Outpatient labs 08/26/16 showed creatinine 1.8 from baseline 1.0; improved to 1.2 on presentation. Received fluids in ER Hold Lasix Creatinine normalized HYPERTENSION On losartan Remains stable DEPRESSION On Celexa- dose increased by PCP on 08/26/16 stable DVT PROPHYLAXIS Heparin SQ DISPOSITION To be determined PT/OT evaluation Likely discharge tomorrow Vital Signs: Date Time Temp Pulse Resp B/P (MAP) Pulse Ox O2 Delivery O2 Flow Rate FiO2 08/31/16 10:20 145/85 (105) 08/31/16 09:08 94 Room Air 08/31/16 08:00 Room Air 08/31/16 07:59 36.7 73 16 162/82 (108) 94 Room Air 08/31/16 00:09 76 166/85 (112) 137/74 (95) 08/30/16 23:22 36.6 83 16 178/75 (109) 95 Room Air 165/76 (105) 08/30/16 23:15 Room Air 08/30/16 14:52 36.5 69 18 121/71 (88) 93 Room Air Lab Results: Results Past 24 Hours Test 08/31/16 06:15 Range/Units White Blood Count 8.57 4.8-10.8 K/uL Red Blood Count 3.18 4.2-5.4 M/uL Hemoglobin 9.2 12.0-16.0 g/dL Hematocrit 28.8 37-47 % Mean Corpuscular Volume 90.6 80-100 fL Mean Corpuscular Hemoglobin 28.9 25-34 pg Mean Corpuscular Hemoglobin Concent 31.9 32-36 g/dl RDW Standard Deviation 49.0 36.4-46.3 fL RDW Coefficient of Variation 14.8 11.5-14.5 % Platelet Count 382 130-400 K/uL Mean Platelet Volume 9.7 7.4-10.4 fL Sodium Level 147 136-145 mmol/L Potassium Level 4.1 3.5-5.1 mmol/L Chloride Level 112 98-107 mmol/L Carbon Dioxide Level 28 21-32 mmol/L Anion Gap 7.0 3-11 mmol/L Blood Urea Nitrogen 15 7-18 mg/dl Creatinine 1.10 0.60-1.20 mg/dl Est Creatinine Clear Calc Drug Dose 62.8 ml/min Estimated GFR () 60.2 Estimated GFR (Non- 51.9 BUN/Creatinine Ratio 13.9 10-20 Random Glucose 100 70-99 mg/dl Calcium Level 8.8 8.5-10.1 mg/dl Magnesium Level 1.5 1.8-2.4 mg/dl
[2016-08-31 15:02] VITALS: BP 153/83; PULSE 73; TEMP 36.8; O2SAT 94
--- NOTE | 2016-08-31 17:26 | PROGRESS NOTE ---
DATE: 08/31/2016 CHIEF COMPLAINT: Status post I&D abscess of the left hip, postop day #3. PROGRESS: Johana was seen and examined at bedside today. Overall, she is doing very well. She really has no hip pain. She is sitting up in the chair. She has been ambulating without any difficulty. She is currently getting IV Ancef and is tolerating it well. PHYSICAL EXAMINATION: LEFT HIP: The dressing has been changed and the drain has been pulled. She has no pain in her hip. The incision looks good. LABORATORY DATA: Microbiology grew out Staph aureus. IMPRESSION: Status post incision and drainage abscess of the left hip, postop day #3. PLAN: At this point, she is doing very well. Will get her set up for IV ceftriaxone at home. A PICC line has been ordered. She is orthopedically stable for discharge tonight, but we need to wait till the PICC line goes in so likely discharge tomorrow. I will see her in the office in 2 weeks to remove the chaz.
[2016-08-31] MEDS: LOSARTAN POTASSIUM 50 MG TAB PO SCH (20:52)
[2016-08-31] MEDS: LATANOPROST 0.005% OP SOLN 2.5 ML BTL OPB SCH (20:52)
[2016-08-31 23:01] VITALS: BP 159/83; PULSE 78; TEMP 36.7; O2SAT 94
[2016-09-01] MEDS: HEPARIN SOD 5000 UNIT/0.5 ML CARP SQ SCH ×2 (05:29→13:35)
[2016-09-01 07:18] VITALS: BP 155/85; PULSE 78; TEMP 36.7; O2SAT 96
[2016-09-01 07:45] VITALS: O2SAT 96
[2016-09-01] MEDS: CEROVITE ADV FORMULA TAB PO SCH (08:58)
[2016-09-01] MEDS: ASPIRIN 325 MG ECTAB PO SCH (08:58)
[2016-09-01] MEDS: CALCIUM 600MG + VIT D 400 IU TAB PO SCH (08:58)
[2016-09-01] MEDS: CITALOPRAM 40 MG TAB PO SCH (08:58)
[2016-09-01 09:22] VITALS: BP 155/85; PULSE 78; TEMP 36.7; O2SAT 96
--- NOTE | 2016-09-01 10:41 | Progress Note ---
Internal Med Progress Note Date of Service: Sep 01, 2016. Provider Documentation: SUBJECTIVE: The patient was seen and examined OOB on a chair Denies any pain at rest Getting Physical Therapy Denies any complaints -ready to be discharged OBJECTIVE: Vital Signs-as noted below Exam: General-No distress at rest Eyes-normal ENT-Normal Neck-supple Lungs-clear to ausucltate bilaterally Heart-Regular Abdomen-Benign,no masses,bowel sound present Extremities-trace edema bilaterally Local area is bandaged Neuro-AAOx3 Lab data as noted below. ASSESSMENT & PLAN: LEFT HIP CELLULITIS WITH ABSCESS In area of healed incision from prior [facility] October 2015 Was started on Augmentin and Keflex as outpatient Started on IV vancomycin and Zosyn ON ADMISSION S/P I and D by ortho Culture-Staph Aureus sensitive to Oxacillin ID consulted and will await for the recommendation PICC placed Ceftriaxone IV for 14 days in total and then Oral antibiotic as per ID RESOLVING MALACHI Outpatient labs 08/26/16 showed creatinine 1.8 from baseline 1.0; improved to 1.2 on presentation. Received fluids in ER Hold Lasix Creatinine normalized Resume all other home medications HYPERTENSION On losartan Remains stable DEPRESSION On Celexa- dose increased by PCP on 08/26/16 stable DVT PROPHYLAXIS Heparin SQ DISPOSITION To be determined PT/OT evaluation Likely discharge tomorrow Vital Signs: Date Time Temp Pulse Resp B/P (MAP) Pulse Ox O2 Delivery O2 Flow Rate FiO2 09/01/16 09:22 36.7 78 19 96 Room Air 09/01/16 07:45 96 Room Air 09/01/16 07:18 36.7 78 19 155/85 (108) 96 Room Air 09/01/16 00:15 Room Air 08/31/16 23:01 36.7 78 16 159/83 (108) 94 Room Air 08/31/16 15:30 Room Air 08/31/16 15:02 36.8 73 16 153/83 (106) 94 Room Air
[2016-09-01] MEDS: CEFTRIAXONE SOD INJ 2,000 MG in DEXTROSE 5% 50ML 50 ML IV SCH (10:48)
--- NOTE | 2016-09-01 11:07 | Infectious Disease Progress Nt ---
Progress Note Date of Service Sep 01, 2016. Subjective Pt evaluation today including: conversation w/ patient, physical exam, chart review, lab review, review of studies, conversation w/ qa consultant, review of inpatient medication list No new complaints. Remains afebrile. Pain controlled. Tolerating Abx. All Other Systems: Reviewed and Negative Medications Current Inpatient Medications Medications (Trade) Dose Ordered Sig/Reginaldo Route Start Time Stop Time Status Last Admin Dose Admin Heparin Sodium (Porcine) (Heparin Sq 5000 Unit/0.5ml) 5,000 unit Q8 SQ 08/27/16 22:00 09/26/16 21:59 Future hold 09/01/16 05:29 5,000 UNIT Acetaminophen (Tylenol Tab) 650 mg Q4H PRN PO 08/27/16 15:00 09/26/16 14:59 Ondansetron HCl (Zofran Inj) 4 mg Q6H PRN IV 08/27/16 15:00 09/26/16 14:59 Aspirin (Ecotrin Tab) 325 mg DAILY PO 08/28/16 09:00 09/27/16 08:59 09/01/16 08:58 325 MG Citalopram Hydrobromide (celeXA TAB) 40 mg DAILY PO 08/28/16 09:00 09/27/16 08:59 09/01/16 08:58 40 MG Latanoprost (Xalatan Oph Soln) 1 drops HS OPB 08/27/16 21:00 09/26/16 20:59 08/31/16 20:52 1 DROPS Multivitamins/ Minerals (Multivitamin W/ Minerals Tab) 1 tab DAILY PO 08/28/16 09:00 09/27/16 08:59 09/01/16 08:58 1 TAB Tramadol HCl (Ultram Tab) 100 mg Q6H PRN PO 08/27/16 15:15 09/26/16 15:14 08/29/16 23:26 100 MG Calcium/Vitamin D (Caltrate Plus Tab) 1 tab BID PO 08/27/16 21:00 09/26/16 20:59 09/01/16 08:58 1 TAB Losartan Potassium (coZAAR TAB) 100 mg HS PO 08/27/16 21:00 09/26/16 20:59 08/31/16 20:52 100 MG Meclizine HCl (Antivert Tab) 25 mg TID PRN PO 08/27/16 15:15 09/26/16 15:14 Ceftriaxone Sodium 2000 mg/ Dextrose 70 ml @ 100 mls/hr DAILY@1000 IV 08/31/16 11:00 10/12/16 10:59 09/01/16 10:48 100 MLS/HR Objective Vital Signs Date Time Temp Pulse Resp B/P (MAP) Pulse Ox O2 Delivery O2 Flow Rate FiO2 09/01/16 09:22 36.7 78 19 96 Room Air 09/01/16 07:45 96 Room Air 09/01/16 07:18 36.7 78 19 155/85 (108) 96 Room Air 09/01/16 00:15 Room Air 08/31/16 23:01 36.7 78 16 159/83 (108) 94 Room Air 08/31/16 15:30 Room Air 08/31/16 15:02 36.8 73 16 153/83 (106) 94 Room Air Physical Exam General Appearance: WD/WN, no apparent distress Eyes: normal inspection, sclerae normal ENT: normal ENT inspection, pharynx normal Neck: supple, no adenopathy, trachea midline Respiratory/Chest: chest non-tender, lungs clear, normal breath sounds, no respiratory distress Cardiovascular: regular rate, rhythm, no gallop, no murmur Abdomen: normal bowel sounds, non tender, soft, no organomegaly Extremities: no calf tenderness, normal capillary refill Neurologic/Psychiatric: alert, oriented x 3 Skin: normal color, no rash Lymphatic: no adenopathy Assessment and Plan 66-year-old female with left hip abscess following remote left hip surgery, with cultures positive for methicillin sensitive Staph aureus. Pt. to be treated as outpatient, so I have changed to IV ceftriaxone as daptomycin not feasible because of costs. Likely 2 weeks IV Rx followed by oral therapy. Will follow as outpatient.
[2016-09-01] MEDS ORDERED: RCPAV2 IV (12:54)
[2016-09-01] MEDS ORDERED: LACTCHW3 PO (12:54)
--- NOTE | 2016-09-01 12:57 | Discharge Instructions ---
Discharge Instructions Date of Service Sep 01, 2016. Admission Reason for Admission: Cellulitis Of Left Hip Discharge Discharge Diagnosis / Problem: Left Hip Cellulitis and Abscess, s/p I&D Discharge Goals Goal(s): Prevent Disease Progression Activity Recommendations Activity Limitations: resume your previous activity . Instructions / Follow-Up Instructions / Follow-Up Dr White on 09/07/16 at 1:20PM.Please Keep appointment with Dr Koch and make an appointment with Dr Mcclure in 7 days Current Hospital Diet Patient's current hospital diet: AHA Diet (Heart Healthy) Discharge Diet Recommended Diet: AHA Diet (Heart Healthy) Procedures Procedures Performed: Left hip incision and drainage Pending Studies Studies pending at discharge: no Medical Emergencies . Who to Call and When: Medical Emergencies: If at any time you feel your situation is an emergency, please call 911 immediately. . Non-Emergent Contact Non-Emergency issues call your: Primary Care Provider . Past History Medical & Surgical History: (1) Cellulitis of left hip (2) Depression (3) Dyslipidemia (4) GERD (gastroesophageal reflux disease) (5) HTN (hypertension) (6) Obesity, morbid, BMI 50 or higher (7) Sleep apnea (8) S/P appendectomy (9) S/P hip replacement (10) History of dental surgery (11) S/P cholecystectomy (12) H/O umbilical hernia repair . "Provider Documentation" section prepared by Leslie Ag. . VTE Core Measure Inpt VTE Proph given/why not?: Unfractionated heparin SQ
[2016-09-01] MEDS ORDERED: VANCOMYCIN TROUGH SCH (13:30)
--- NOTE | 2016-09-02 08:14 | Discharge Summary ---
Discharge Summary Date of Service Sep 02, 2016. Discharge Summary Admission Date: Aug 27, 2016 at 14:24 Discharge Date: Sep 01, 2016 Principal Diagnosis: Left Hip Cellulitis and Abscess, s/p I&D Secondary Diagnoses/Problems: Please see H&P and Hospital progress note Procedures: I&D of the left hip abscess Consultations: Ortho and ID Medication Reconciliation New Medications: Ceftriaxone Sod (Ceftriaxone Sodium) 2 Gm Inj 2000 MG IV DAILY, #9 Lactobacillus (Lactinex) Chw 2 TAB PO BID for 15 Days, #60 CHW Continued Medications: Aspirin (Aspirin) 325 Mg Tab 325 MG PO DAILY Calcium Carbonate-Vitamin D (Calcium + D) 1 Tab Tab 1 TAB PO BID Citalopram (Citalopram Hydrobromide) 40 Mg Tab 40 MG PO DAILY, TAB 3 Refills Furosemide (Furosemide) 40 Mg Tab 40 MG PO DAILY PRN for swelling Latanoprost (Xalatan 0.005% Oph Emilie) 0.005 % Emilie 1 DROPS OPB HS, #7.5 ML 3 Refills Losartan Potassium & Hydrochlo (Losartan Potassium/Hydroc) 1 Tab Tab 1 TAB PO HS for 30 Days, TAB 5 Refills Meclizine HCl (Meclizine HCl) 25 Mg Tab 25 MG PO TID PRN for Dizziness or Vertigo Multiple Vitamins W/ Minerals (Centrum Silver Adult 50+) 1 Tab Tab 1 TAB PO DAILY Tramadol (Ultram) 50 Mg Tab 100 MG PO Q6H PRN for Pain, #60 TAB Discontinued Medications: Amoxicillin & Pot Clavulanate (Augmentin 875-125 mg) 1 Tab Tab 1 TAB PO BID, #14 TAB Cephalexin Monohydrate (Keflex) 500 Mg Cap 500 MG PO QID, CAP Admission Information HPI (per Admitting provider): This is a 66 year old female with PMH of HTN, dyslipidemia, morbid obesity, GERD , depression, and other problems listed below who presents to the ED for left hip rash. Patient reports prior left hip arthroplasty by Dr. Koch in October 2015. Approximately 1.5 weeks ago she developed itching and soreness around left hip incision area. There was no injury/ trauma. Her daughter looked at the hip yesterday and noticed it was erythematous and therefore brought patient to clinic. Pt was seen by PCP Dr. White yesterday, x-ray and labs were done and patient was started on Augmentin. Labs from yesterday showed creatinine of 1.8 from baseline of 1.0, WBC >15K. patient was called about these results and sent to ER. Patient was also seen by ortho Dr. Puga yesterday who started patient on Keflex. Pt admits to mild L hip soreness. No issues with ROM. Has been ambulating with a cane. No falls. Patient admits to mild confusion for past 1 week- occasionally mixes up the names of her children. No focal neurologic symptoms. Celexa was increased yesterday by Dr. White for worsened anxiety/ depression. No suicidal ideations. No fever, chills, chest pain, SOB, N/V/D, dysuria, frequency, LE edema. Past Medical/Surgical History Medical Problems: (1) Depression Status: Chronic (2) Dyslipidemia Status: Chronic (3) Edema Status: Chronic (4) GERD (gastroesophageal reflux disease) Status: Chronic (5) HTN (hypertension) Status: Chronic (6) IBS (irritable bowel syndrome) Status: Chronic (7) Obesity, morbid, BMI 50 or higher Status: Chronic (8) Sleep apnea Permanent Comment: not on CPAP Status: Chronic Surgical Problems: (1) H/O umbilical hernia repair Status: Chronic (2) History of dental surgery Status: Chronic (3) S/P appendectomy Status: Chronic (4) S/P cholecystectomy Status: Chronic (5) S/P hip replacement Permanent Comment: left; October 2015; Dr. Koch Status: Chronic Family History Cardiac disorder MOTHER Hypertension MOTHER BROTHER Social History Smoking Status: Never Smoker Alcohol Use: none Marital Status: Housing status: lives with significant other Occupational Status: retired Multi-Drug Resistant Organisms History of MDRO: No Allergies Coded Allergies: Codeine (Verified Allergy, Unknown, nausea/vomiting, 08/27/16) Erythromycin (Verified Allergy, Unknown, *hallucinations when mixes with sudafed, 08/27/16) Pseudoephedrine (Verified Allergy, Unknown, *hallucinations when mixes with e-mycin, 08/27/16) Hydrocodone (Verified Adverse Reaction, Mild, NAUSEA/VOMITING, 08/27/16) Oxycodone (Verified Adverse Reaction, Mild, NAUSEA/VOMITING, 08/27/16) Simvastatin (Verified Adverse Reaction, Unknown, muscle aches, 08/27/16) Home Medications Scheduled Amoxicillin & Pot Clavulanate (Augmentin 875-125 mg), 1 TAB PO BID Aspirin (Aspirin), 325 MG PO DAILY Calcium Carbonate-Vitamin D (Calcium + D), 1 TAB PO BID Cephalexin Monohydrate (Keflex), 500 MG PO QID Citalopram (Citalopram Hydrobromide), 40 MG PO DAILY Latanoprost (Xalatan 0.005% Oph Emilie), 1 DROPS OPB HS Losartan Potassium & Hydrochlo (Losartan Potassium/Hydroc), 1 TAB PO HS Multiple Vitamins W/ Minerals (Centrum Silver Adult 50+), 1 TAB PO DAILY Scheduled PRN Furosemide (Furosemide), 40 MG PO DAILY PRN for swelling Meclizine HCl (Meclizine HCl), 25 MG PO TID PRN for Dizziness or Vertigo Tramadol (Ultram), 100 MG PO Q6H PRN for Pain Review of Systems Ten systems reviewed and negative except as noted in HPI. Physical Ex - H&P Physical Exam Vital Signs Date Time Temp Pulse Resp B/P (MAP) Pulse Ox O2 Delivery O2 Flow Rate FiO2 08/27/16 14:25 70 16 164/75 97 Room Air 08/27/16 13:00 74 18 111/60 94 Room Air 08/27/16 11:02 36.9 97 20 150/84 93 Room Air General Appearance: no apparent distress, + obese, + pertinent finding (alert cooperative 66 year old female, lying in bed, no distress) Head: normocephalic, atraumatic Eyes: normal inspection, PERRL, sclerae normal ENT: hearing grossly normal, pharynx normal Neck: supple, trachea midline Respiratory/Chest: lungs clear, normal breath sounds, no respiratory distress, no accessory muscle use Cardiovascular: regular rate, rhythm, no murmur Abdomen/GI: normal bowel sounds, non tender, soft, + pertinent finding (obese) Extremities/Musculoskelatal: no calf tenderness, no pedal edema, + pertinent finding (no pain with left hip flexion) Neurologic/Psych: alert, normal mood/affect, oriented x 3, + pertinent finding (no focal deficit on gross examination. speech is clear. no dysarthria. ) Skin: warm/dry, + pertinent finding (bright erythema and tenderness surrounding healed left hip incision. mildly indurated but no fluctuant area. no open area or drainage. ) Diagnostics - H&P Diagnostics Laboratory Results Results Past 24 Hours Test 08/27/16 11:40 08/27/16 12:00 08/27/16 13:11 Range/Units White Blood Count 15.11 4.8-10.8 K/uL Red Blood Count 3.95 4.2-5.4 M/uL Hemoglobin 11.4 12.0-16.0 g/dL Hematocrit 34.6 37-47 % Mean Corpuscular Volume 87.6 80-100 fL Mean Corpuscular Hemoglobin 28.9 25-34 pg Mean Corpuscular Hemoglobin Concent 32.9 32-36 g/dl Platelet Count 386 130-400 K/uL Mean Platelet Volume 10.5 7.4-10.4 fL Neutrophils (%) (Auto) 84.2 % Lymphocytes (%) (Auto) 10.7 % Monocytes (%) (Auto) 3.9 % Eosinophils (%) (Auto) 0.7 % Basophils (%) (Auto) 0.1 % Neutrophils # (Auto) 12.71 1.4-6.5 K/uL Lymphocytes # (Auto) 1.62 1.2-3.4 K/uL Monocytes # (Auto) 0.59 0.11-0.59 K/uL Eosinophils # (Auto) 0.11 0-0.5 K/uL Basophils # (Auto) 0.02 0-0.2 K/uL RDW Standard Deviation 47.0 36.4-46.3 fL RDW Coefficient of Variation 14.4 11.5-14.5 % Immature Granulocyte % (Auto) 0.4 % Immature Granulocyte # (Auto) 0.06 0.00-0.02 K/uL Large Platelets 2+ Erythrocyte Sedimentation Rate > 90 0-21 mm/hr Prothrombin Time 11.8 9.0-12.0 SECONDS Prothromb Time International Ratio 1.1 0.9-1.1 Activated Partial Thromboplast Time 27.8 21.0-31.0 SECONDS Partial Thromboplastin Ratio 1.1 Sodium Level 139 136-145 mmol/L Potassium Level 3.6 3.5-5.1 mmol/L Chloride Level 102 98-107 mmol/L Carbon Dioxide Level 27 21-32 mmol/L Anion Gap 10.0 3-11 mmol/L Blood Urea Nitrogen 40 7-18 mg/dl Creatinine 1.20 0.60-1.20 mg/dl Est Creatinine Clear Calc Drug Dose 57.6 ml/min Estimated GFR () 54.2 Estimated GFR (Non- 46.7 BUN/Creatinine Ratio 33.4 10-20 Random Glucose 126 70-99 mg/dl Calcium Level 9.0 8.5-10.1 mg/dl Total Bilirubin 0.8 0.2-1 mg/dl Aspartate Amino Transf (AST/SGOT) 25 15-37 U/L Alanine Aminotransferase (ALT/SGPT) 25 12-78 U/L Alkaline Phosphatase 199 45-117 U/L C-Reactive Protein 25.60 0-0.29 mg/dl Total Protein 7.8 6.4-8.2 gm/dl Albumin 2.6 3.4-5.0 gm/dl Globulin 5.2 2.5-4.0 gm/dl Albumin/Globulin Ratio 0.5 0.9-2 Procalcitonin 0.36 0-0.5 ng/ml Urine Color YELLOW Urine Appearance CLEAR CLEAR Urine pH 5.0 4.5-7.5 Urine Specific Clarence 1.020 1.000-1.030 Urine Protein NEG NEG Urine Glucose (UA) NEG NEG Urine Ketones NEG NEG Urine Occult Blood TRACE NEG Urine Nitrite NEG NEG Urine Bilirubin NEG NEG Urine Urobilinogen NEG NEG Urine Leukocyte Esterase NEG NEG Urine WBC (Auto) 1-5 0-5 /hpf Urine RBC (Auto) 0-4 0-4 /hpf Urine Hyaline Casts (Auto) 1-5 0-5 /lpf Urine Epithelial Cells (Auto) 5-10 0-5 /lpf Urine Bacteria (Auto) NEG NEG Bedside Lactic Acid Venous 1.04 0.90-1.70 mmol/L Microbiology Results 08/27/16 Blood Culture, Received Pending 08/27/16 Blood Culture, Received Pending Diagnostic Radiology LEFT HIP UNILATERAL 2 VIEWS CLINICAL HISTORY: left hip infection pain. Infection. COMPARISON: None. DISCUSSION: Prior total left hip replacement. Good contact between prosthetic and underlying bone. No lytic or blastic process. There is no evidence for soft tissue swelling. IMPRESSION: No acute process status post total left hip replacement TWO VIEW CHEST CLINICAL HISTORY: Hip infection. FINDINGS: PA and lateral chest radiographs are compared to study dated 10/31/2015. The heart is mildly enlarged. The pulmonary vasculature is noncongested. Chronic interstitial thickening is similar to previous. There is mild elevation of the right hemidiaphragm and bibasilar atelectasis. The lungs and pleural spaces are otherwise clear. There is no pneumothorax. The skeletal structures are osteopenic. Degenerative change is noted throughout the thoracic spine. IMPRESSION: Cardiac enlargement with no active disease in the chest. EKG NSR, 81 bpm, no significant change when compared to prior EKG, as per cardiology read, also reviewed by me Impression - H&P Impression Assessment and Plan LEFT HIP CELLULITIS In area of healed incision from prior L AMADOR October 2015 Was started on Augmentin and Keflex as outpatient + leukocytosis (WBC 15K) ; ESR >90, however no sepsis- afebrile, HR and BP stable, lactic acid WNL, procalcitonin WNL L hip x-ray- no acute findings Started on empiric vancomycin and Zosyn- will continue F/u blood cultures Consult ortho- Dr. Koch RESOLVING MALACHI Outpatient labs 08/26/16 showed creatinine 1.8 from baseline 1.0; improved to 1.2 today Received IVFs in ER- will give additional 1 liter at 100 mL/hour Hold furosemide and HCTZ Recheck PRP in am Avoid nephrotoxins HYPERTENSION BP intermittently elevated in ER Continue losartan Hold HCTZ and furosemide for resolving MALACHI DEPRESSION Continue Celexa- dose increased by PCP on 08/26/16 Denies suicidal ideation DVT PROPHYLAXIS Heparin SQ DISPOSITION Admit to med/ surg Follows with Dr. White for primary care Patient seen in collaboration with Dr. Ag. Please see his addendum. Attending Addendum: The patine bro seen and examined in ER in presence of the daughter Itchy and redness left lateral hip for the last 2 days Scratched the area and the overall condition got worse O/E Hemodynamically stable HEENT-unremarkable Chest-clear Heart-regular,no murmur Abdomen-benign,no masses,bowel sound present Local Exam of the left Hip area: Spreading cellulitis over left lateral hip area Minor skin break at the center without any drainage. Labs and Imaging studies were reviewed D/W Ortho-Follow CT of the Hip ;May need I&D Continue antibiotics Agree with the assessment and plan. DR Johnny Ag VTE Prophylaxis VTE Risk Assessment Done? Y/N: Yes Risk Level: Moderate Physical Exam (per Admitting): General Appearance: no apparent distress, + obese, + pertinent finding ( alert cooperative 66 year old female, lying in bed, no distress) Head: normocephalic, atraumatic Eyes: normal inspection, PERRL, sclerae normal ENT: hearing grossly normal, pharynx normal Neck: supple, trachea midline Respiratory/Chest: lungs clear, normal breath sounds, no respiratory distress, no accessory muscle use Cardiovascular: regular rate, rhythm, no murmur Abdomen/GI: normal bowel sounds, non tender, soft, + pertinent finding ( obese) Extremities/Musculoskelatal: no calf tenderness, no pedal edema, + pertinent finding (no pain with left hip flexion) Neurologic/Psych: alert, normal mood/affect, oriented x 3, + pertinent finding (no focal deficit on gross examination. speech is clear. no dysarthria. ) Skin: warm/dry, + pertinent finding (bright erythema and tenderness surrounding healed left hip incision. mildly indurated but no fluctuant area. no open area or drainage. ) Hospital Course LEFT HIP CELLULITIS WITH ABSCESS In area of healed incision from prior L AMADOR October 2015 Was started on Augmentin and Keflex as outpatient Started on IV vancomycin and Zosyn ON ADMISSION S/P I and D by ortho Culture-Staph Aureus sensitive to Oxacillin ID consulted and will await for the recommendation PICC placed Ceftriaxone IV for 14 days in total and then Oral antibiotic as per ID RESOLVING MALACHI Outpatient labs 08/26/16 showed creatinine 1.8 from baseline 1.0; improved to 1.2 on presentation. Received fluids in ER Hold Lasix Creatinine normalized Resume all other home medications HYPERTENSION On losartan Remains stable DEPRESSION On Celexa- dose increased by PCP on 08/26/16 stable DVT PROPHYLAXIS Heparin SQ DISPOSITION To be determined PT/OT evaluation Likely discharge tomorrow Total time spent on discharge = 35 minutes This includes examination of the patient, discharge planning, medication reconciliation, and communication with other providers. Discharge Instructions Date of Service Sep 01, 2016. Admission Reason for Admission: Cellulitis Of Left Hip Discharge Discharge Diagnosis / Problem: Left Hip Cellulitis and Abscess, s/p I&D Discharge Goals Goal(s): Prevent Disease Progression Activity Recommendations Activity Limitations: resume your previous activity . Instructions / Follow-Up Instructions / Follow-Up Dr White on 09/07/16 at 1:20PM.Please Keep appointment with Dr Koch and make an appointment with Dr Mcclure in 7 days Current Hospital Diet Patient's current hospital diet: AHA Diet (Heart Healthy) Discharge Diet Recommended Diet: AHA Diet (Heart Healthy) Procedures Procedures Performed: Left hip incision and drainage Pending Studies Studies pending at discharge: no Medical Emergencies . Who to Call and When: Medical Emergencies: If at any time you feel your situation is an emergency, please call 911 immediately. . Non-Emergent Contact Non-Emergency issues call your: Primary Care Provider . Past History Medical & Surgical History: (1) Cellulitis of left hip (2) Depression (3) Dyslipidemia (4) GERD (gastroesophageal reflux disease) (5) HTN (hypertension) (6) Obesity, morbid, BMI 50 or higher (7) Sleep apnea (8) S/P appendectomy (9) S/P hip replacement (10) History of dental surgery (11) S/P cholecystectomy (12) H/O umbilical hernia repair . "Provider Documentation" section prepared by Leslie Ag. . VTE Core Measure Inpt VTE Proph given/why not?: Unfractionated heparin SQ <Electronically signed by Leslie Ag M.D.> Additional Copies To Kassi White D.O.
--- NOTE | 2016-09-02 15:33 | EDITING REQUIRED CODING QUERY ---
CODING QUERY To promote full compliance with coding requirements relating to patient care, provider participation is requested in all cases of flat examiner uncertainty. Please assist us with the question(s) below: Coding Question(s): Please specify below, in your clinical opinion, regarding the Left Hip Cellulitis and Abscess. ( ) These are likely a complication resulting from the Left TKA Surgery (+ ) These are not likely a complication resulting from the Left TKA Surgery Physician's Response(s): Thank you Tammy Pichardo Principal Diagnosis: "_that condition established after study, to be chiefly responsible for occasioning the admission of the patient to the hospital for care." Co-Existing Principal Diagnosis: "_when two or more diagnoses equally meet the criteria for principal diagnosis as determined by the circumstances of admission, diagnostic work up, and/or therapy provided, and the Alphabetic Index, Tabular List, or another coding guideline does not provide sequencing direction, any one of the diagnoses may be sequenced first." "When the physician has documented what appears to be a current diagnosis in the body of the record, but has not included the diagnosis in the final diagnostic statement, the physician should be asked whether the diagnosis should be added." (Source Coding [facility] 2 QTR90. p3-4)
== END 2016-09-01 14:15 | disposition home health service (06) | DRG 571 ==
LOC: C.EDB 10:53 → C.MSN 14:24 → EDBEDREQ 15:17 → ENRESERV 15:48
PROVIDERS: ADMIT Internal Medicine; ATTEND Internal Medicine
PROC: 0JBM0ZZ Excision of Left Upper Leg Subcutaneous Tissue and Fascia, Open Approach (ICD-10-PCS; principal; 2016-08-28 07:30)
PROC: 0J9M0ZX Drainage of Left Upper Leg Subcutaneous Tissue and Fascia, Open Approach, Diagnostic (ICD-10-PCS; principal; 2016-08-28 07:30)
PROC: 0JBM0ZX Excision of Left Upper Leg Subcutaneous Tissue and Fascia, Open Approach, Diagnostic (ICD-10-PCS; principal; 2016-08-28 07:30)
PROC: 05HD33Z Insertion of Infusion Device into Right Cephalic Vein, Percutaneous Approach (ICD-10-PCS; 2016-09-01)
DX: L03.116 Cellulitis of left lower limb (principal); Z68.43 Body mass index [BMI] 50.0-59.9, adult; N17.9 Acute kidney failure, unspecified; L02.416 Cutaneous abscess of left lower limb; B95.61 Methicillin susceptible Staphylococcus aureus infection as the cause of diseases classified elsewhere; I10 Essential (primary) hypertension; E66.01 Morbid (severe) obesity due to excess calories; F32.9 Major depressive disorder, single episode, unspecified; F41.9 Anxiety disorder, unspecified; Z51.81 Encounter for therapeutic drug level monitoring; Z79.899 Other long term (current) drug therapy; Z79.82 Long term (current) use of aspirin; Z96.642 Presence of left artificial hip joint; Z82.49 Family history of ischemic heart disease and other diseases of the circulatory system

== ENCOUNTER → 2016-09-14 | Outpatient (CLI) | payer OTHER ==
[~2016-09-14] MED LIST changes: +ASPI325T45 PO; +CALC600T9 PO; +CITA40TA4 PO; -CLX20 PO; -DIPH25CA65 PO; +LACTCHW3 PO; +LATA0.5S OPB; +LOSA100T26 PO; -LOSA100T33 PO; +LSX40 PO; -MELO7.5T5 PO; +MULT-845 PO; +RCPAV2 IV; -TRAV0.00 OPB
[2016-09-14 16:40] LABS: BASO % 1.2 %; BASO ABS # 0.07 K/uL (0-0.2); COMPLETE YES; EOS % 5.5 %; HEMATOCRIT 32.9 % (37-47); LYMPH % 31.3 %; LYMPH ABS # 1.77 K/uL (1.2-3.4); MEAN CELL VOLUME 90.1 fL (80-100); MEAN CORPUSCULAR HGB CONC 32.2 g/dl (32-36); MEAN PLATELET VOLUME 11.7 fL (7.4-10.4); MONO % 10.8 %; NEUT % 51.2 %; PLATELET COUNT 248 K/uL (130-400); RED BLOOD COUNT 3.65 M/uL (4.2-5.4); WHITE BLOOD COUNT 5.66 K/uL (4.8-10.8)
[2016-09-14 16:48] LABS: ALT/SGPT 25 U/L (12-78); AST/SGOT 22 U/L (15-37); BLOOD UREA NITROGEN 19 mg/dl (7-18); BUN/CREATININE RATIO 19.8 (10-20); C-REACTIVE PROTEIN 0.79 mg/dl (0-0.29); CALCIUM 9.8 mg/dl (8.5-10.1); CARBON DIOXIDE 31 mmol/L (21-32); CHLORIDE 106 mmol/L (98-107); CREATININE 0.98 mg/dl (0.60-1.20); GLUCOSE 88 mg/dl (70-99); POTASSIUM 3.8 mmol/L (3.5-5.1); SODIUM 143 mmol/L (136-145)
[2016-09-14 16:51] LABS: ALB/GLOB RATIO 0.8 (0.9-2); ALKALINE PHOSPHATASE 88 U/L (45-117)
== END | disposition home or self-care (01) ==
LOC: C.LAB1850 15:29
PROVIDERS: ATTEND Physician Assistant
DX: A49.01 Methicillin susceptible Staphylococcus aureus infection, unspecified site (principal)

== ENCOUNTER → 2016-10-14 | Outpatient (CLI) | payer OTHER ==
[2016-10-14 16:43] LABS: BASO % 0.3 %; BASO ABS # 0.02 K/uL (0-0.2); COMPLETE YES; EOS % 4.3 %; HEMATOCRIT 36.5 % (37-47); IG% 0.2 %; LYMPH ABS # 1.83 K/uL (1.2-3.4); MEAN CELL VOLUME 89.5 fL (80-100); MEAN CORPUSCULAR HEMOGLOBIN 28.7 pg (25-34); MEAN CORPUSCULAR HGB CONC 32.1 g/dl (32-36); MEAN PLATELET VOLUME 12.4 fL (7.4-10.4); MONO % 8.9 %; NEUT % 58.3 %; PLATELET COUNT 227 K/uL (130-400); RED BLOOD COUNT 4.08 M/uL (4.2-5.4); WHITE BLOOD COUNT 6.54 K/uL (4.8-10.8)
[2016-10-14 16:59] LABS: ALT/SGPT 20 U/L (12-78); BLOOD UREA NITROGEN 21 mg/dl (7-18); BUN/CREATININE RATIO 19.2 (10-20); C-REACTIVE PROTEIN 0.71 mg/dl (0-0.29); CALCIUM 9.6 mg/dl (8.5-10.1); CARBON DIOXIDE 29 mmol/L (21-32); CHLORIDE 106 mmol/L (98-107); GLUCOSE 96 mg/dl (70-99); POTASSIUM 3.8 mmol/L (3.5-5.1); SODIUM 143 mmol/L (136-145)
[2016-10-14 17:02] LABS: ALB/GLOB RATIO 0.8 (0.9-2); ALKALINE PHOSPHATASE 83 U/L (45-117); AST/SGOT 17 U/L (15-37)
== END | disposition home or self-care (01) ==
LOC: C.LAB1850 14:41
PROVIDERS: ATTEND Physician Assistant
DX: A49.01 Methicillin susceptible Staphylococcus aureus infection, unspecified site (principal)

== ENCOUNTER 2024-11-14 05:27 | Observation (INO) ==
--- NOTE | 2024-10-25 09:03 | PAT Medication Instructions ---
Medication Instructions Date of Service October 25, 2024 Home Medications Medication Instructions Recorded furosemide 20 mg tablet (Lasix) 20 mg PO QAM #30 tabs 07/12/24 tramadol 50 mg tablet 50 mg PO QAM #90 tabs 08/10/24 bupropion HCl 150 mg tablet,12 hr 150 mg PO BID #180 ea 09/06/24 sustained-release (Wellbutrin SR) meclizine 25 mg tablet 25 mg PO TID PRN Dizziness Or 09/06/24 Vertigo #90 tabs tolterodine 2 mg capsule,extended 2 mg PO QAM #90 caps 09/06/24 release 24 hr (Detrol LA) apixaban 5 mg tablet (Eliquis) 5 mg PO BID #60 tabs 10/10/24 latanoprost (PF) 0.005 % eye drops 1 drp ophthalmic (eye) HS rosuvastatin 20 mg tablet 20 mg PO Q2D furosemide 20 mg tablet (Lasix) 20 mg PO QAM olmesartan 40 mg tablet 40 mg PO QAM tramadol 50 mg tablet 50 mg PO QAM bupropion HCl 150 mg tablet,12 hr sustained-release (Wellbutrin SR) 150 mg PO BID meclizine 25 mg tablet 25 mg PO TID PRN tolterodine 2 mg capsule,extended release 24 hr (Detrol LA) 2 mg PO QAM apixaban 5 mg tablet (Eliquis) 5 mg PO BID metoprolol succinate 50 mg tablet,extended release 24 hr 50 mg PO HS Continue as directed rosuvastatin 20 mg tablet 20 mg PO Q2D ASK your prescriber and surgeon apixaban 5 mg tablet (Eliquis) 5 mg PO BID(in order for spinal or epidural anesthesia, Eliquis needs to be stopped 72 hours/3 days before surgery. Please check if okay with doctor that prescribes this to you) DO NOT take the morning of surgery furosemide 20 mg tablet (Lasix) 20 mg PO QAM olmesartan 40 mg tablet 40 mg PO QAM tolterodine 2 mg capsule,extended release 24 hr (Detrol LA) 2 mg PO QAM Take morning of surgery With a small sip of water, OTHERWISE NOTHING TO EAT OR DRINK AFTER MIDNIGHT: tramadol 50 mg tablet 50 mg PO QAM bupropion HCl 150 mg tablet,12 hr sustained-release (Wellbutrin SR) 150 mg PO BID meclizine 25 mg tablet 25 mg PO TID PRN(if needed) Take evening before surgery latanoprost (PF) 0.005 % eye drops 1 drp ophthalmic (eye) HS bupropion HCl 150 mg tablet,12 hr sustained-release (Wellbutrin SR) 150 mg PO BID meclizine 25 mg tablet 25 mg PO TID PRN(if needed) metoprolol succinate 50 mg tablet,extended release 24 hr 50 mg PO HS Other Notes If you have any questions please call us at [phone] or [phone] or [phone] or [phone]
--- NOTE | 2024-10-31 13:50 | Anesthesiology Consultation ---
Date of Service October 31, 2024 Assessment & Plan (1) Encounter for pre-operative examination: Plan - awaiting surgeon ordered 11/01 PCP clearance. - check BSG am DOS. - nephrology pre-operative response regarding creatinine at 1.6: "OK to proceed with TKA from nephrology perspective. Kidney function remains stable. Recommend avoiding NSAIDS in perioperative time period." Surgeon's office made aware. - cardiology office visit 08/08/24: "...normal coronaries, but with slightly elevated LVEDP consistent with HTN and diastolic dysfunction...to have knee surgery...from a cardiac standpoint, she is considered to be an appropriate candidate/cardiovascular risk for the upcoming knee surgery...to hold her Eliquis x 2-3 days prior to both of these procedures...clearance 09/10/24: appropriate candidate for the main orthopedic procedure..." - Outpatient joint assessment: Patient is currently scheduled for inpatient pathway. If re-evaluated and patient/surgeon requests outpatient pathway, patient is not an advised candidate for outpatient joint program. Chart Review Chart Review: Pending: Refer to Additional Notes / Consult section and Patient seen in Pre Admission Testing Teaching & Discussion Pre-Anesthesia Teaching/Discussion Notes: Instructed NPO after midnight before surgery, except medications with 15 cc of water. Medication instructions provided according to the PAT guidelines. History Surgery Operation Date: 11/14/24 07:15 Proposed Procedures p Right Total Knee Arthroplasty - Adeel Negrete MD Height/Weight Height: 5 ft 1.5 in Weight: 132.4 kg Allergies Allergy/AdvReac Type Severity Reaction Status Date / Time erythromycin base AdvReac Severe Hallucinations Verified 10/24/24 13:19 (when combination with sudafed) pseudoephedrine AdvReac Severe Hallucinations Verified 10/24/24 13:19 (when combination with e-mycin) codeine AdvReac Intermediate Nausea, Verified 10/24/24 13:19 Vomiting hydrocodone AdvReac Intermediate Nausea, Verified 10/24/24 13:19 Vomiting oxycodone AdvReac Intermediate Nausea, Verified 10/24/24 13:19 Vomiting simvastatin AdvReac Intermediate Muscle Verified 10/24/24 13:19 Aches Medications Home Medications Medication Instructions Recorded Confirmed Last Taken latanoprost (PF) 0.005 % eye drops 1 drp ophthalmic (eye) HS 0110/24/24 07/23/24 rosuvastatin 20 mg tablet 20 mg PO Q2D 06/06/24 10/24/24 07/24/24 furosemide 20 mg tablet (Lasix) 20 mg PO QAM #30 tabs 07/12/24 10/24/24 07/23/24 olmesartan 40 mg tablet 40 mg PO QAM 07/12/24 10/24/24 07/24/24 tramadol 50 mg tablet 50 mg PO QAM #90 tabs 08/10/24 10/24/24 Unknown bupropion HCl 150 mg tablet,12 hr 150 mg PO BID #180 ea 09/06/24 10/24/24 Unknown sustained-release (Wellbutrin SR) meclizine 25 mg tablet 25 mg PO TID PRN Dizziness Or 09/06/24 10/24/24 Unknown Vertigo #90 tabs tolterodine 2 mg capsule,extended 2 mg PO QAM #90 caps 09/06/24 10/24/24 Unknown release 24 hr (Detrol LA) apixaban 5 mg tablet (Eliquis) 5 mg PO BID #60 tabs 10/10/24 10/24/24 Unknown metoprolol succinate 50 mg 50 mg PO HS 10/24/24 10/24/24 Unknown tablet,extended release 24 hr Past Medical History Medical History (Updated 10/31/24 @ 15:07 by Kenisha Adams PA-C) Anemia no blood transfusion/iron infusions Arthritis Atrial fibrillation Eliquis - PSH Dr Emily Pool Cervical spine fracture 2018 > medically managed, residual limited ROM per pt to the left; h/o glide scope intubation for D&C hysteroscopy Chronic kidney disease (CKD) [facility] [place] Nephrology - Dr Guzmán Depression hx, no recent issues, "doesnt' feel depressed" Difficult intubation h/o cervical spine fracture with significantly limited cervical ROM Dyslipidemia Edema furosemide/Lasix "Helps" Endometrial intraepithelial neoplasia (EIN) PSH OBGYN GERD (gastroesophageal reflux disease) controlled, stable per pt History of epistaxis x2 since starting eliquis, most recently in 06/2024, notified Dr Emily Pool, no issues since Hyperlipidemia Hypertension controlled, stable peer pt IBS (irritable bowel syndrome) pt denies IUD (intrauterine device) in place Morbid obesity with BMI of 50.0-59.9, adult Osteoarthritis of knees, bilateral PONV (postoperative nausea and vomiting) does well with IV anti-nausea medication Prediabetes pt denies - last A1c 06/22/24 Sleep apnea cpap - unable to tolerate Thyroid nodule pt denies Vertigo daily meclizine Patient denies h/o stroke, seizures, heart attack, heart failure, blood clots/DVTs or blood transfusions. Exercise / Class Metabolic Activity III < 4 Walking/Shop/Light housework (ambulates with cane, denies chest discomfort or shortness of breath with usual activities) Past Family History Family History Brother Family history of diabetes mellitus Diabetes Hypertension Brother Family history of diabetes mellitus Diabetes Hypertension Mother Family history of diabetes mellitus Myocardial infarction Diabetes Grandfather (Paternal) Myocardial infarction Aunt Breast cancer Father Cancer Brother Diabetes Hypertension Denies family history of Ovarian cancer Prostate cancer Colorectal cancer Past Surgical History Surgical History History of appendectomy 1964 History of cardiac catheterization 01/2024 - No stents - [facility] Emily Pool History of cholecystectomy 1980 History of colonoscopy 07/2024 History of dilatation and curettage x4 History of esophagogastroduodenoscopy (EGD) 07/2024 History of open reduction and internal fixation (ORIF) procedure Left Arm>hardware intact History of tooth extraction Upper Partial History of total hip arthroplasty Left and Debridement History of umbilical hernia repair x2 History of wisdom tooth extraction Past Anesthesia History No Hx of Anesthesia Complications and No Family Hx of Anesthesia Complications History of PONV No Hx of Motion Sickness and History of PONV (does well with IV pre-dosing) Social History Smoking Status: Never smoker Do You Dip or Chew Tobacco: No Hx Alcohol Use: Yes alcohol intake frequency: other Alcohol Intake Frequency Comment: 1 shot/ 2x per year Hx Substance Use: No substance use type: does not use Review of Systems Patient denies chest pain, shortness of breath, dyspnea on exertion, fever, chills, cough, wheezing, or palpitations. Physical Exam Vital Signs Vitals BP 119/76 P 73 TEMP 97.9 SP02 94% on RA RESP 18 Physical Patient resting comfortably in chair in no acute distress, alert and oriented, responding appropriately throughout visit Full cervical extension range of motion without pain TMD < 3 finger breadths Mallampati Score 3 Dentition: partial-removable, denies chipped or loose teeth, caps/crowns, implants or bridges Lungs: normal respiratory effort. Good air movement, clear throughout to auscultation, no adventitious breath sounds Cardiac: regular rate and rhythm, no murmurs noted Carotid arteries: negative bruit bilat Lab Results Anesthesia Preop Results Results Anesthesia Widget: WBC 7.28 K/ul (4.8-10.8) 10/31/24 Hgb 14.1 g/dl (12.0-16.0) 10/31/24 Hct 43.8 % (37.0-47.0) 10/31/24 Plt 207 K/uL (130-400) 10/31/24 Na 141 mmol/L (136-145) 10/31/24 K 4.1 mmol/L (3.5-5.1) 10/31/24 Cl 105 mmol/L (98-107) 10/31/24 CO2 29 mmol/L (21-32) 10/31/24 BUN 32 mg/dl (6-23) H 10/31/24 Creat 1.63 mg/dl (0.6-1.2) H 10/31/24 Glucose Level 109 mg/dl (70-99(Fasting)) H 10/31/24 PT 10.8 Seconds (9.0-12.0) 10/31/24 PTT 29 Seconds (21-31) 10/31/24 INR 1.0 (0.9-1.1) 10/31/24 Urine Color Yellow 10/31/24 Urine Appearance Clear (Clear) 10/31/24 Urine pH 5.5 (4.5-7.5) 10/31/24 Urine Specific [place] 1.010 (1.000-1.030) 10/31/24 Urine Protein Negative (Negative) 10/31/24 Urine Glucose (UA) Negative (Negative) 10/31/24 Urine Ketones Negative (Negative) 10/31/24 Urine Blood Negative (Negative) 10/31/24 Urine Nitrite Negative (Negative) 10/31/24 Urine Bilirubin Negative (Negative) 10/31/24 Urine Urobilinogen Negative (Negative) 10/31/24 Urine Leukocyte Esterase Trace (Negative) H 10/31/24 Urine WBC (Auto) 0-5 /hpf (0-5) 10/31/24 Urine RBC (Auto) 0-2 /hpf (0-2) 10/31/24 Urine Hyaline Casts (Auto) 0-2 /lpf (0-2) 10/31/24 Urine Epithelial Cells (Auto) 0-2 /hpf (0-2) 10/31/24 Urine Bacteria (Auto) None Seen (None Seen) 10/31/24 Blood Type O Positive 10/31/24 Antibody Screen NEGATIVE 10/31/24 Testing Electrocardiogram Date: 12/05/23 Afib, rate 92 bpm Chest X-Ray Date: 10/31/24 No acute findings. Echocardiogram Date: 12/15/23 EF 55-60% Normal LV wall motion Mildly dilated LA Mild cLVH Grade I diastolic dysfunction Stress Test Date: 12/23/23 1. Raw data analysis demonstrates increased liver and GI uptake. Mild breast attenuation shadow and morbid obesity. Study is adequate for interpretation. 2. Gated myocardial perfusion imaging demonstrates normal size LV, normal ca lculated EF of 72%, and abnormal septal wall motion. 3. There is a medium in size, mild to moderate intensity, mostly reversible MPI defect involving the mid and distal septum, anterior, lateral, and apical myocardium. These findings are suggestive of myocardial ischemia plus or minus artifact. 4. This study is moderately abnormal. There is a moderate risk of myocardial ischemia. No prior study for comparison. It is recommended that the patient discuss these findings further with the primary lard bleacher to determine if additional testing/treatment is indicated. Cardiac Catheterization Date: 01/26/24 LM -Short, normal caliber, no significant disease LAD -medium caliber, no significant disease, distal vessel extends to apex. Very small D1, D2 without disease. Medium D3 no significant disease. Circumflex -medium caliber, AV groove segment without significant disease. 20% proximal medium OM 2. RCA -dominant, large caliber, mid segment luminal irregularities. RPDA, RPLB without significant disease. Stress test represents false positive. Okay to proceed with planned noncardiac surgery.
--- NOTE | 2024-11-12 15:30 | History & Physical Report ---
Date of Service November 12, 2024 Assessment & Plan (1) Osteoarthritis of knees, bilateral: Plan: Severe end-stage bilateral knee osteoarthritis complicated by morbid obesity. Patient's activity is extremely limited making it extremely difficult for her to lose weight. There will be an increased level of difficulty already doing the knee replacement due to the severity of the osteoarthritis and this will only get worse over time. Plan is to proceed with a total knee replacement and we will add cemented stem extension to help mitigate loosening and may need constrained polyethylene due to the significant instability. There also will be some increased difficulty due to her morbid obesity BMI 54.3. Osteoarthritis type: primary Qualified Code(s): M17.0 - Bilateral primary osteoarthritis of knee History of Present Illness Chief Complaint: Chronic bilateral knee pain right greater than left Primary Care Provider: KYLER Ontiveros 74-year-old female with very severe advanced bilateral knee osteoarthritis with me getting injections on a routine basis for years and is at the point where the injections are not helping her anymore she is disabled functionally and unable to manage the pain any longer. Patient denies headaches, sweats, fevers, chills, double vision, blurred vision, cough, sore throat, dysphagia, chest pain, sob at rest with shortness of breath climbing stairs and walking up a hill, wheezing, n/v/d/c, numbness, tingling, fatigue, urinary symptoms. ROS positive for loud snoring and CPAP, slow to wake up from anesthesia morbid obesity with some but not substantial weight loss. Allergies Allergy/AdvReac Type Severity Reaction Status Date / Time erythromycin base AdvReac Severe Hallucinations Verified 11/07/24 14:52 (when combination with sudafed) pseudoephedrine AdvReac Severe Hallucinations Verified 11/07/24 14:52 (when combination with e-mycin) codeine AdvReac Intermediate Nausea, Verified 11/07/24 14:52 Vomiting hydrocodone AdvReac Intermediate Nausea, Verified 11/07/24 14:52 Vomiting oxycodone AdvReac Intermediate Nausea, Verified 11/07/24 14:52 Vomiting simvastatin AdvReac Intermediate Muscle Verified 11/07/24 14:52 Aches Home Medications Medication Instructions Recorded Confirmed Type latanoprost (PF) 0.005 % eye drops 1 drp ophthalmic (eye) HS 04/09/19 11/08/24 History rosuvastatin 20 mg tablet 20 mg PO Q2D 06/06/24 11/08/24 History furosemide 20 mg tablet (Lasix) 20 mg PO QAM #30 tabs 07/12/24 11/08/24 Rx olmesartan 40 mg tablet 40 mg PO QAM 07/12/24 11/08/24 History tramadol 50 mg tablet 50 mg PO QAM #90 tabs 08/10/24 11/08/24 Rx bupropion HCl 150 mg tablet,12 hr 150 mg PO BID #180 ea 09/06/24 11/08/24 Rx sustained-release (Wellbutrin SR) meclizine 25 mg tablet 25 mg PO TID PRN Dizziness Or 09/06/24 11/08/24 Rx Vertigo #90 tabs tolterodine 2 mg capsule,extended 2 mg PO QAM #90 caps 09/06/24 11/08/24 Rx release 24 hr (Detrol LA) apixaban 5 mg tablet (Eliquis) 5 mg PO BID #60 tabs 10/10/24 11/08/24 Rx metoprolol succinate 50 mg 50 mg PO HS 10/24/24 11/08/24 History tablet,extended release 24 hr Past Med/Surg History Problem List (Updated 11/12/24 @ 15:32 by Adeel Negrete MD) Weight loss Chronic kidney disease Unintentional weight loss of 10% body weight within 6 months Atrial fibrillation Vitamin D deficiency Pre-diabetes Osteoarthritis of knees, bilateral Urinary incontinence Thyroid nodule Endometrial intraepithelial neoplasia (EIN) Colon polyps Encounter for pre-operative examination Sleep apnea (Chronic) "not on CPAP" Obesity, morbid, BMI 50 or higher (Chronic) IBS (irritable bowel syndrome) (Chronic) HTN (hypertension) (Chronic) Edema (Chronic) GERD (gastroesophageal reflux disease) (Chronic) Dyslipidemia (Chronic) Depression (Chronic) Osteoarthritis of hip Medical History Difficult intubation h/o cervical spine fracture with significantly limited cervical ROM IUD (intrauterine device) in place Osteoarthritis of knees, bilateral Endometrial intraepithelial neoplasia (EIN) PSH OBGYN History of epistaxis x2 since starting eliquis, most recently in 06/2024, notified Dr Emily Pool, no issues since PONV (postoperative nausea and vomiting) does well with IV anti-nausea medication Thyroid nodule pt denies Prediabetes pt denies - last A1c 06/22/24 IBS (irritable bowel syndrome) pt denies Edema furosemide/Lasix "Helps" Dyslipidemia Depression hx, no recent issues, "doesnt' feel depressed" Chronic kidney disease (CKD) [facility] [place]rology - Dr Guzmán Atrial fibrillation Eliquis - PS Dr Emily Pool Anemia no blood transfusion/iron infusions Morbid obesity with BMI of 50.0-59.9, adult Hyperlipidemia Cervical spine fracture 2018 > medically managed, residual limited ROM per pt to the left; h/o glidescope intubation for D&C hysteroscopy Arthritis GERD (gastroesophageal reflux disease) controlled, stable per pt Vertigo daily meclizine Sleep apnea cpap - unable to tolerate Hypertension controlled, stable peer pt Surgical History History of tooth extraction Upper Partial History of wisdom tooth extraction History of umbilical hernia repair x2 History of cardiac catheterization 01/2024 - No stents - Follows with [facility] Emily Pool History of total hip arthroplasty Left and Debridement History of open reduction and internal fixation (ORIF) procedure Left Arm>hardware intact History of dilatation and curettage x4 History of cholecystectomy 1980 History of appendectomy 1964 History of colonoscopy 07/2024 History of esophagogastroduodenoscopy (EGD) 07/2024 Family History Brother Family history of diabetes mellitus Diabetes Hypertension Brother Family history of diabetes mellitus Diabetes Hypertension Mother Family history of diabetes mellitus Myocardial infarction Diabetes Grandfather (Paternal) Myocardial infarction Aunt Breast cancer Father Cancer Brother Diabetes Hypertension Denies family history of Ovarian cancer Prostate cancer Colorectal cancer Social History Smoking Status: Never smoker Second Hand Exposure: No; Do You Dip or Chew Tobacco: No; Hx Alcohol Use: Yes Hx Substance Use: No Preferred Language: Georgian Communication Ability: Effective Visual Impairment: No Limitations Hearing Ability: Normal Mid Level Practitioner Required: No Beliefs That Will Affect Care: None marital status: / Current Living Situation: Alone current occupational status: retired current occupation: formerly worked at [employer] ([place]) How many Children do You have: 3 Feels Safe at Home: Yes Childhood Exposure to Second-Hand Smoke: Yes Diet: regular during the past year weight has: increased > 10 lbs Dental Care, Regularly: No Physical Activity Frequency: Does not Exercise Seatbelt Use: always Sunscreen Use: No Do you think of yourself as: straight/heterosexual Gender Identity: Female Assistive Devices: Cane, Denture - Upper and Glasses Review of Systems All systems reviewed & are unremarkable except as noted in HPI & below Physical Exam Constitutional: WD/WN, vitals as above Morbid obesity Respiratory: normal respiratory effort; no respiratory distress Cardiovascular: Rate/Rhythm: regular rate and regular rhythm Musculoskeletal: Varus alignment of both knees with mild to moderate swelling with moderate patellofemoral crepitation bilaterally. Some instability with varus stress due to bone loss on the right knee not on the left. 0 to 70 degrees range of motion on the right and 0 to 90 degrees range of motion on the left. Lower neurovascular exam is intact and strength is normal. Skin: no rashes, warm and dry Neurologic: normal touch/pain/proprioception Psychiatric: A+Ox3, euthymic affect Results & Data Diagnostic Findings Severe bilateral knee osteoarthritis right greater than left with subluxation of the femur medial on the tibia on the right with some bone loss medial com partment with subchondral sclerosis osteophytes and lateral tracking patella with bone loss in the patellofemoral joint as well. Arthritic changes are more severe on the right than the left which is also severely advanced.
[2024-11-14] MEDS: LR 60ML/HR IV SCH (06:15)
[2024-11-14] MEDS: METOCLOPRAMIDE HCL 10 MG TABLET PO SCH (06:15)
[2024-11-14] MEDS: GABAPENTIN 300 MG CAP PO SCH (06:15)
[2024-11-14] MEDS: dexAMETHasone**PF** 10 MG/ML VIAL IV SCH (06:15)
[2024-11-14] MEDS: FAMOTIDINE 20 MG TAB PO SCH (06:15)
[2024-11-14] MEDS: CeleBREX 200 MG CAP PO SCH (06:15)
[2024-11-14] MEDS: LR 500ML BOLUS, THEN 15ML/HR IV SCH (06:15)
[2024-11-14] MEDS ORDERED: ROPIVACAINE 0.5% 5 MG/ML 30 ML VIAL ONE (06:32)
[2024-11-14] MEDS ORDERED: MIDAZOLAM HCL 1 MG/ML 2ML VIAL ONE (06:41)
[2024-11-14] MEDS: TRANEXAMIC ACID 1,000 MG **IV Pre-op IV SCH (07:10)
--- NOTE | 2024-11-14 07:12 | History & Physical Bridge Note ---
Date of Service November 14, 2024 History & Physical Bridge Note I have examined the patient, reviewed the History & Physical and in the interval since the performance of the History & Physical I have noted the following changes of clinical significance: no changes noted
[2024-11-14] MEDS: ceFAZolin 3000MG 3,000 MG/72.5 ML BAG IV SCH (07:24)
[2024-11-14] MEDS ORDERED: BUPIVACAINE 0.5 % 5 MG/1 ML PF 10ML VIAL ONE (07:29)
[2024-11-14] MEDS ORDERED: PROPOFOL IV EMULSION 10 MG/ML 20 ML VIAL IV ONE ×3 (07:46→10:02)
[2024-11-14] MEDS ORDERED: HYDROmorphone INJ 1 MG/ML SYRINGE IV PRN (07:49)
[2024-11-14] MEDS ORDERED: ATROPINE SULFATE 0.1 MG/ML 10ML SYR IV PRN (07:49)
[2024-11-14] MEDS ORDERED: ONDANSETRON INJ 2 MG/ML 2 ML VIAL IV PRN ×2 (07:49→12:17)
[2024-11-14] MEDS: ORTHO JOINT ANESTHETIC ONE (08:12)
[2024-11-14] MEDS: ROPIVACAINE 0.5% HCL/PF 246 MG, Ketorolac (*for OR use only*) 30 MG in SODIUM CHLORIDE ... INFIL SCH (08:12)
--- NOTE | 2024-11-14 11:00 | Post Operative Brief Note ---
Immediate Post Op Note Date of Surgery November 14, 2024 Pre & Post Diagnosis Operation Date: 11/14/24 07:00 Pre-Op Diagnosis: Right Knee Degenerative Joint Disease, patellofemoral malalignment, patella Baha, morbid obesity BMI 53.2 Post-Op Diagnosis: Right Knee Degenerative Joint Disease, patellofemoral malalignment, patella Baha, morbid obesity BMI 53.2 I identified the patient and participated in the time-out.: Yes Procedure Operation Date: 11/14/24 07:00 Actual Procedures p Right Total Knee Arthroplasty(Right), lateral release, application ace and Acticoat superficial wound VAC, increased difficulty morbid obesity BMI 53.2- Adeel Negrete MD Surgeon Adeel Negrete MD Spice Room Worker Travis LEACH Estimated Blood Loss 100 Findings Consistent with Post-Op Diagnosis Specimens Bone cuts Drains Hemovac Drain Anesthesia Type MAC Spinal Regional Complications none Disposition Disposition: Recovery Room Overlapping Procedure I was immediately available: during the entire case.
--- NOTE | 2024-11-14 11:22 | Operative Report ---
Post Operative Report Pre & Post Diagnosis Operation Date: 11/14/24 07:00 Pre-Op Diagnosis: Right Knee Degenerative Joint Disease, patellofemoral malalignment, patella Baha, morbid obesity BMI 53.2 Post-Op Diagnosis: Right Knee Degenerative Joint Disease, patellofemoral alignment, patella Baha, morbid obesity BMI 53.2 I identified the patient and participated in the time-out.: Yes Procedure Operation Date: 11/14/24 07:00 Actual Procedures p Right Total Knee Arthroplasty(Right), lateral release, application ace anterior superficial wound VAC, degrees difficulty morbid obesity BMI 53.2- Adeel Negrete MD Surgeon Adeel Negrete MD Packaging Machine Operator Travis LEACH Estimated Blood Loss 100 Findings Consistent with Post-Op Diagnosis Specimens Bone cuts Drains 2 Hemovac Anesthesia Type MAC Spinal Regional Complications none Disposition Disposition: Recovery Room Indications 74-year-old female with severe bilateral knee osteoarthritis with bone loss and extensive conservative management with multiple injections over the years. Right most symptomatic knee has a flexion contracture bone loss medial compartment [id number] patellofemoral joint and medial compartment with patellofemoral malalignment and tricompartmental arthritic changes. Left knee is similar to her right is much bone loss. Description of Procedure Patient taken to the operating room the size under spinal MAC regional block anesthesia. Patient was placed supine on the operating table. A pneumatic tourniquet was placed about the very obese right upper thigh. The right lower extremity was prepped and draped in sterile fashion. Knee exam demonstrated an obese knee with flexion contracture of 15 degrees with flexion to 90 degrees and no instability. Unable to determine whether she has an effusion based on the marked obesity of the leg.. The leg was elevated exsanguinated with an Esmarch bandage and pneumatic tourniquet was raised to 350 millimeters of mercury. Skin incised sharply in longitudinal fashion. Deeper than typical fat layer was divided and the length incision was longer than typical due to the obesity. Subcutaneous flaps were elevated. Incision was made through the medial retinaculum extending up in the mid third of the quadriceps tendon and down to the medial tibial tubercle. She had a short quadriceps tendon and the incision went all the way up to the level of the muscle attachment. She also patella Baha off with a low-lying patella and short patellar tendon noted. Intra- articular findings demonstrated tricompartmental osteoarthritis [id number] patellofemoral joint medial compartment with bone loss medial tibia and posterior medial femoral condyle. 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 With notch stenosis. The [employer] triAFrame Digitallon total knee arthroplasty system was used. To expose the knee the infrapatellar fat pad was resected. The meniscal remnants and cruciate ligaments were resected. The anterior fat pad over the femur in the area of the location of the anterior flange of the femoral component was resected. The lateral synovial bands were released. Exposure was too tight to expose the femur so I had to address the patella first. Patella osteophytes were resected and a subperiosteal peel lateral release was performed around the lateral patella and towel clips were placed to help expose the patella and then after measuring the width reproducing that with a freehand cut technique. We used the guide for the eccentric patella size 32. And positioned that appropriately and medial drill holes. Attention was then taken back to exposing the femur . An intramedullary drill hole was made into the canal. A guide oc was placed. Distal femoral cutting guide was adjusted to resect a 5 degree valgus cut with 10 millimeters distal femur resected due to the flexion contracture. Retractors were placed to expose the femur. The femoral sizing guide was pinned in position. The drill holes were placed in 3 of external rotation to match the epicondylar axis. The femur sized for between 5 and 6 with a medial lateral with more appropriate for a 5 so we used the anterior posterior shifting device to shift cut anterior 1.5 mm anteriorly. 4-in-1 size 5 cutting block. The 4-in-1 cutting block was placed in the adjusted position and then the anterior posterior and chamfer cuts are made. The tibia was then subluxed. The external tibial cutting guide was adjusted to make a perpendicular cut to the long axis of the tibia below the most deficient bone loss side. Cut was adjusted for slope. A lamina drywall installer was used and the flexion extension gaps were balanced. No releases were required. All posterior osteophytes removed. All meniscal remnants were resected. The tibia exposed and the trial tibial component size 4 was externally rotated in line with the tibial tubercle and pinned in position. The drill followed by the punch for stem was used. The notch cutting device was centered appropriately and the femoral notch cut was made. The femoral trial was inserted. Trial tibial inserts were placed and size 13 posterior stabilized gave balanced ligaments through flexion and extension. Patella tracking was assessed. The patella tracked with some lateral tilt so I felt a lateral release was required and this was released with electrocautery preserving as much of the synovium as we could laterally. Some of the lateral geniculate vessels did have to be cauterized. Patella was reassessed for tracking down tracks centrally. The trial components were then removed and the orthomix anesthetic cocktail was injected per protocol. The knee was then copiously irrigated with pulsatile lavage saline solution. Final components were then cemented with Refobacin cement. Xperience irrigation placed over metal compoments prior to polyethylene insertion. Final components were Tammy triathlon size 5 right posterior stabilized femoral component with fixation pegs and the 4 universal tibial baseplate with a 13 mm size 4 X.3 polyethylene tibial bearing insert and a 32 mm asymmetrical X.3 polyethylene patella. After the cement cured further pulsatile lavage irrigation was then performed with Xperience and 2 Hemovac drains were brought out laterally. The tourniquet was let down and all bleeders were cauterized. The quadriceps tendon and medial retinaculum were closed with #2 FiberWire [id number] sutures along the medial retinaculum medial side of the patella and distal quadriceps tendon and an additional [id number]-cq-[id number] suture at the apex of the quadriceps tendon split proximally and an additional [id number] suture at the level of the tibial polyethylene in the patella tendon. a 0 running locking STRATAFIX suture was placed starting at the proximal split in the quadriceps tendon extending down to the inferior pole the patella and then below that level [id number] #1 Vicryl sutures were utilized to repair the medial retinaculum to the patella tendon. The knee was taken through full range of motion and the repair was secure. Knee range of motion was 0 through 100 degrees. The subcutaneous tissues were closed with 2-0 Vicryl sutures in layers. Skin was closed with surgical chaz. A ace and Acticoat superficial wound VAC was applied. The patient tolerated the procedure well. Travis LEACH was my physician blacksmith assistant who participated as commercial real estate assistant and was involved in all aspects of the procedure including patient positioning prepping and draping,leg position ing ,soft tissue retraction and instrument management and participated in the closing and application of the superficial wound VAC and will participate in postoperative care of the patient. There was increased level of difficulty due to the obesity of 53.2 adding 1 hour to the length of the surgical procedure time. The patient tolerated the procedure well. I attest to the content of the Intraoperative Record and any orders documented therein. Any exceptions are noted below.
--- NOTE | 2024-11-14 11:51 | Anesthesiology Progress Note ---
Date of Service November 14, 2024 Anesthesia Post Procedure Vital Signs Vital Signs: Temp Pulse Pulse Resp BP Pulse Ox O2 Del Method 11/14/24 11:45 78 16 132/74 99 Oxymask 11/14/24 11:35 79 12 125/80 100 Oxymask 11/14/24 11:25 72 14 125/72 100 Oxymask 11/14/24 11:15 78 12 104/79 100 Oxymask 11/14/24 11:05 36.1 C L 83 14 99/73 L 96 Oxymask 11/14/24 05:46 Room Air 11/14/24 05:46 36.8 C 98 H 20 135/92 95 Room Air O2 Flow Rate 11/14/24 11:45 2 11/14/24 11:35 4 11/14/24 11:25 4 11/14/24 11:15 6 11/14/24 11:05 6 11/14/24 05:46 11/14/24 05:46 Pain Intensity Right Knee: Pain Intensity: 3 Transfer of Care Handoff Completed per policy Notes Mental Status: alert / awake / arousable and participated in evaluation Patient Amnestic to Procedure: Yes Nausea / Vomiting: adequately controlled Pain: adequately controlled Airway Patency, RR, SpO2: stable & adequate BP & HR: stable & adequate Hydration State: stable & adequate Anesthetic Complications: no major complications apparent and Pt Satisfied with anesthetic care
--- NOTE | 2024-11-14 11:56 | XRay Report ---
TWO VIEWS RIGHT KNEE CLINICAL HISTORY: Postoperative examination. FINDINGS: AP and crosstable lateral portable views of the right knee are obtained. A right knee arthr oplasty is in near anatomic alignment. There has been undersurface remodeling of the patella. No acut e fracture is seen. There are expected postoperative changes around the knee including skin clips, a surgical drain, soft tissue edema, and subcutaneous gas. IMPRESSION: Expected postoperative changes status post right knee arthroplasty. No acute fracture is seen. ACT 112: Negative or not required by law. Electronically signed by: Gamaliel Tamez M.D. 11/14/2024 11:55 AM
[2024-11-14] MEDS ORDERED: ALUMINUM/MAGNESIUM SUSP 30 ML UDC PO PRN (12:17)
[2024-11-14] MEDS ORDERED: MAGNESIUM HYDROXIDE SUSP 30 ML UDC PO PRN (12:17)
[2024-11-14] MEDS ORDERED: diphenhydrAMINE Capsule 25 MG CAP PO PRN (12:17)
[2024-11-14] MEDS ORDERED: METOCLOPRAMIDE HCL INJ 5 MG/ML 2 ML VIAL IV PRN (12:17)
[2024-11-14] MEDS ORDERED: MECLIZINE HCL 25 MG TAB PO PRN (12:17)
[2024-11-14] MEDS ORDERED: HYDROmorphone INJ 0.5 MG/0.5 ML SYR IV PRN (12:17)
[2024-11-14] MEDS ORDERED: NALOXONE HCL 0.4 MG/1 ML VIAL/CARP IV PRN (12:17)
[2024-11-14] MEDS: ACETAMINOPHEN 500 MG TAB PO SCH (13:04)
[2024-11-14] MEDS: SODIUM CHLORIDE 0.9% 1,000 ML IV SCH (13:05)
[2024-11-14] MEDS: TRANEXAMIC ACID / 0.7% NACL 1,000 MG/100 ML BAG IV SCH (14:08)
[2024-11-14] MEDS: METOPROLOL SUCC 50MG EXT REL TAB PO SCH (20:53)
[2024-11-14] MEDS: KETOROLAC TROMETHAMINE 15 MG/ML VIAL IV PRN (20:54)
[2024-11-14] MEDS: SENNA 8.6 MG TAB PO SCH (20:54)
[2024-11-14] MEDS: DOCUSATE SODIUM 100 MG CAP PO SCH (20:54)
[2024-11-14] MEDS: LATANOPROST 0.005% OP SOLN 2.5 ML BTL OP SCH (20:55)
[2024-11-14 23:27] VITALS: RESP 18
[2024-11-15 06:43] LABS: Hematocrit (blood only) 33.3 % (37.0-47.0); Hemoglobin 11.3 g/dl (12.0-16.0); Mean Corpuscular Hemoglobin 30.5 pg (25.0-34.0); Mean Corpuscular Volume 89.8 fL (80.0-100.0); Platelet Count 160 K/uL (130-400); RDW Standard Deviation 44.1 fL (36.4-46.3); Red Blood Count 3.71 M/uL (4.20-5.40); White Blood Count 16.42 K/ul (4.8-10.8)
[2024-11-15 07:25] LABS: Anion Gap 7.0 (3-11); Blood Urea Nitrogen 34.0 mg/dl (6-23); Calcium 9.0 mg/dl (8.6-10.3); Carbon Dioxide 24.0 mmol/L (21-32); Chloride 106.0 mmol/L (98-107); Creatinine Clr Calc Pharmacy 34.8 ml/min; Glucose 123.0 mg/dl (70-99(Fasting)); Potassium 4.1 mmol/L (3.5-5.1); Sodium 137.0 mmol/L (136-145)
--- NOTE | 2024-11-15 08:12 | Orthopedic Progress Note ---
Date of Service November 15, 2024 Assessment & Plan (1) Osteoarthritis of knees, bilateral: Plan: Postop day 1 total knee replacement increased difficulty due to severity of arthritis and obesity. Patient doing quite well. She did have 100 cc drained and of the Hemovac last evening would like to continue that for another day. Her desire is to do rehabilitation at [facility]. Social service working on transfer if possible. Will transfer when bed available. Severe end-stage bilateral knee osteoarthritis complicated by morbid obesity. Patient's activity is extremely limited making it extremely difficult for her to lose weight. There will be an increased level of difficulty already doing the knee replacement due to the severity of the osteoarthritis and this will only get worse over time. Plan is to proceed with a total knee replacement and we will add cemented stem extension to help mitigate loosening and may need constrained polyethylene due to the significant instability. There also will be some increased difficulty due to her morbid obesity BMI 54.3. Admission and Anticipated Discharge Date Admission Date: November 14, 2024 Subjective Had some pain last in the inquiring of pain medicine. She was comfortable doing very well yesterday when the nerve blocks were still working. Review of Systems Review of Systems: Feels well no chest pain shortness of breath. Physical Exam Musculoskeletal: Dressing dry and intact ace functional distal circulation sensorimotor exam intact. Results & Data Vital Signs (Past 12 Hours) Vital Signs Temp Pulse Resp BP Pulse Ox O2 Del Method 11/15/24 07:40 36.4 C L 82 18 122/66 93 Room Air 11/15/24 03:31 36.4 C L 90 18 125/79 96 Room Air 11/14/24 23:27 36.4 C L 88 18 122/79 95 Room Air Diagnostic Findings Well aligned right total knee replacement (1) Osteoarthritis of knees, bilateral Osteoarthritis type: primary Qualified Code(s): M17.0 - Bilateral primary osteoarthritis of knee
--- NOTE | 2024-11-15 09:24 | Hospitalist Consultation ---
Date of Consultation November 15, 2024 Assessment & Plan (1) Osteoarthritis of knees, bilateral: (2) HTN (hypertension): (3) Atrial fibrillation: Plan PMH of atrial fibrillation (on Eliquis), hypertension, hyperlipidemia, depression, ELFEGO, GERD, urinary incontinence, endometrial intraepithelial neoplasia, vitamin D deficiency. She presented for right total knee replacement with Dr. Negrete on 11/14. Per review of operative report, EBL was listed as 100 cc, and there were no complications noted. Hospital medicine was consulted for postop medical management. #Osteoarthritis of right knee - Pain control, DVT prophylaxis, activity level, discharge planning per primary team - Acute blood loss anemia with postoperative hemoglobin 11.3. Stable, continue to monitor - Leukocytosis likely secondary to steroids. Afebrile. Do not suspect acute infection #Atrial fibrillationcontinue Eliquis, metoprolol #Hypertensionwell-controlled. Continue current BP regimen #Hyperlipidemiacontinue rosuvastatin #Insomnia/OSAcontinue trazodone 50 mg at bedtime, encourage CPAP use #Urinary incontinencecontinue tolterodine #Endometrial intraepithelial neoplasiarecent D&C with IUD replacement, continue routine follow-up with SOCIAL MEDIA MANAGER Hospital medicine will continue to follow. Please reach out with any questions or concerns. Reviewed outpatient records. History of Present Illness Reason for Consultation: Postop medical management Requesting Physician: Adeel Negrete MD Attending Physician: Adeel Negrete MD History of Present Illness Johana is a pleasant 74-year-old woman with PMH of atrial fibrillation (on Eliquis), hypertension, hyperlipidemia, depression, ELFEGO, GERD, urinary incontinence, endometrial intraepithelial neoplasia, vitamin D deficiency. She presented for right total knee replacement with Dr. Negrete on 11/14. Per review of operative report, EBL was listed as 100 cc, and there were no complications noted. Per review of patient's vitals postop, she has been stable. She was sitting up at the side of her bed eating lunch. She reports expected right knee pain that comes and goes in waves. She feels that her pain medication is controlling her pain well. She is well tolerating her diet. She is passing gas but has not had a BM yet. She denies any chest pain, shortness of breath, headache, nausea, abdominal pain, urinary symptoms. We discussed the results of her lab work from this morning. She is eager for rehab placement. No additional complaints or concerns at this time. Allergies Allergy/AdvReac Type Severity Reaction Status Date / Time erythromycin base AdvReac Severe Hallucinations Verified 11/14/24 05:32 (when combination with sudafed) pseudoephedrine AdvReac Severe Hallucinations Verified 11/14/24 05:32 (when combination with e-mycin) codeine AdvReac Intermediate Nausea, Verified 11/14/24 05:32 Vomiting hydrocodone AdvReac Intermediate Nausea, Verified 11/14/24 05:32 Vomiting oxycodone AdvReac Intermediate Nausea, Verified 11/14/24 05:32 Vomiting simvastatin AdvReac Intermediate Muscle Verified 11/14/24 05:32 Aches Home Medications Medication Instructions Recorded Confirmed Type latanoprost (PF) 0.005 % eye drops 1 drp ophthalmic (eye) HS 04/09/19 11/14/24 History rosuvastatin 20 mg tablet 20 mg PO Q2D 06/06/24 11/14/24 History furosemide 20 mg tablet (Lasix) 20 mg PO QAM #30 tabs 07/12/24 11/14/24 Rx olmesartan 40 mg tablet 40 mg PO QAM 07/12/24 11/14/24 History tramadol 50 mg tablet 50 mg PO QAM #90 tabs 08/10/24 11/14/24 Rx bupropion HCl 150 mg tablet,12 hr 150 mg PO BID #180 ea 09/06/24 11/14/24 Rx sustained-release (Wellbutrin SR) meclizine 25 mg tablet 25 mg PO TID PRN Dizziness Or 09/06/24 11/14/24 Rx Vertigo #90 tabs tolterodine 2 mg capsule,extended 2 mg PO QAM #90 caps 09/06/24 11/14/24 Rx release 24 hr (Detrol LA) apixaban 5 mg tablet (Eliquis) 5 mg PO BID #60 tabs 10/10/24 11/14/24 Rx metoprolol succinate 50 mg 50 mg PO HS 10/24/24 11/14/24 History tablet,extended release 24 hr acetaminophen 500 mg tablet 1,000 mg (2 x 500 mg) PO Q8 #90 11/15/24 Rx (Tylenol Extra Strength) tabs cefadroxil 500 mg capsule 500 mg PO Q12H #28 caps 11/15/24 Rx tramadol 50 mg tablet 50 - 100 mg (1 - 2 x 50 mg) PO Q4H 11/15/24 Rx PRN pain #30 tabs Patient History Medical History Difficult intubation h/o cervical spine fracture with significantly limited cervical ROM IUD (intrauterine device) in place Osteoarthritis of knees, bilateral Endometrial intraepithelial neoplasia (EIN) [facility] History of epistaxis x2 since starting eliquis, most recently in 06/2024, notified Dr Emily Pool, no issues since PONV (postoperative nausea and vomiting) does well with IV anti-nausea medication Thyroid nodule pt denies Prediabetes pt denies - last A1c 06/22/24 IBS (irritable bowel syndrome) pt denies Edema furosemide/Lasix "Helps" Dyslipidemia Depression hx, no recent issues, "doesnt' feel depressed" Chronic kidney disease (CKD) [facility] [place] Nephrology - Dr Guzmán Atrial fibrillation Eliquis - PS Dr Emily Pool Anemia no blood transfusion/iron infusions Morbid obesity with BMI of 50.0-59.9, adult Hyperlipidemia Cervical spine fracture 2018 > medically managed, residual limited ROM per pt to the left; h/o glidescope intubation for D&C hysteroscopy Arthritis GERD (gastroesophageal reflux disease) controlled, stable per pt Vertigo daily meclizine Sleep apnea cpap - unable to tolerate Hypertension controlled, stable peer pt Surgical History History of tooth extraction Upper Partial History of wisdom tooth extraction History of umbilical hernia repair x2 History of cardiac catheterization 01/2024 - No stents - Follows with [facility] Emily Pool History of total hip arthroplasty Left and Debridement History of open reduction and internal fixation (ORIF) procedure Left Arm>hardware intact History of dilatation and curettage x4 History of cholecystectomy 1980 History of appendectomy 1964 History of colonoscopy 07/2024 History of esophagogastroduodenoscopy (EGD) 07/2024 Family History Brother Family history of diabetes mellitus Diabetes Hypertension Brother Family history of diabetes mellitus Diabetes Hypertension Mother Family history of diabetes mellitus Myocardial infarction Diabetes Grandfather (Paternal) Myocardial infarction Aunt Breast cancer Father Cancer Brother Diabetes Hypertension Denies family history of Ovarian cancer Prostate cancer Colorectal cancer Social History Smoking Status: Never smoker Second Hand Exposure: No; Do You Dip or Chew Tobacco: No; Tobacco Cessation Education Requested by Patient: No Hx Alcohol Use: Yes Hx Substance Use: No Preferred Language: French Communication Ability: Effective Visual Impairment: No Limitations Hearing Ability: Normal Slot Floorperson Required: No Beliefs That Will Affect Care: None marital status: / Current Living Situation: Alone current occupational status: retired current occupation: formerly worked at [employer] How many Children do You have: 3 Other Information That Helps Us Care for You: No Feels Safe at Home: Yes Safety Concerns: Feels Safe At This Time Childhood Exposure to Second-Hand Smoke: Yes Diet: regular during the past year weight has: increased > 10 lbs Dental Care, Regularly: No Physical Activity Frequency: Does not Exercise Seatbelt Use: always Sunscreen Use: No Do you think of yourself as: straight/heterosexual Gender Identity: Female Assistive Devices: Cane, CPAP, Glasses and Walker Review of Systems Review of Systems: All systems reviewed & are unremarkable except as noted in Subjective Physical Exam Physical Exam: General: No acute distress, nondiaphoretic, well-developed, well-nourished. Class III obesity with BMI of 53. Skin: Warm, dry. Cardiac: Regular rate and rhythm without murmurs gallops or rubs. Pulm: Clear to auscultation bilaterally without wheezes, rales or rhonchi. Normal respiratory effort. 94% on room air. Abdominal: Soft, nontender, nondistended. Neuro: A&O x3. No focal neurological deficits. MSK: Right lower extremity wrapped in bandage clean, dry, intact. Normal motor and sensory function. Results & Data Results & Data Vital Signs (Past 12 Hours) Vital Signs Temp Pulse Resp BP Pulse Ox O2 Del Method 11/15/24 07:40 97.5 F L 82 18 122/66 93 Room Air 11/15/24 03:31 97.5 F L 90 18 125/79 96 Room Air 11/14/24 23:27 97.5 F L 88 18 122/79 95 Room Air Laboratory Results Reviewed CBC Reviewed BMP PG Care Time/CCT Total # of Minutes Spent Total Time Spent with Patient: Total time spent is greater than 50% in coordination of care (as documented) at patient's floor/unit and/or counseling patient: Coding Level of Care Code 17781 IN/OBS CONSULT LVL 4,60M Diagnoses Primary osteoarthritis of both knees M17.0 Osteoarthritis type: primary HTN (hypertension) I10 Atrial fibrillation I48.91 (1) Osteoarthritis of knees, bilateral Osteoarthritis type: primary Qualified Code(s): M17.0 - Bilateral primary osteoarthritis of knee
[2024-11-15] MEDS: MULTIVITAMIN TAB PO SCH (09:35)
[2024-11-15] MEDS: FUROSEMIDE 20 MG TAB PO SCH (09:35)
[2024-11-15] MEDS: APIXABAN 5 MG TABLET PO SCH (09:35)
[2024-11-15] MEDS: OXYBUTYNIN CHLORIDE XL 5 MG TABCR PO SCH (09:35)
[2024-11-15] MEDS: LOSARTAN POTASSIUM 50 MG TAB PO SCH (09:36)
[2024-11-15] MEDS: ROSUVASTATIN CALCIUM 20 MG TAB PO SCH (09:36)
[2024-11-15] MEDS: dexAMETHasone 10 MG in SYRINGE 0 ML IV SCH (10:17)
[2024-11-16 06:39] LABS: Hematocrit (blood only) 34.5 % (37.0-47.0); Hemoglobin 11.3 g/dl (12.0-16.0); Mean Corpuscular Hemoglobin 29.7 pg (25.0-34.0); Mean Corpuscular Volume 90.8 fL (80.0-100.0); Platelet Count 171 K/uL (130-400); RDW Standard Deviation 46.1 fL (36.4-46.3); Red Blood Count 3.80 M/uL (4.20-5.40); White Blood Count 14.42 K/ul (4.8-10.8)
[2024-11-16 07:02] LABS: Anion Gap 5.0 (3-11); Blood Urea Nitrogen 37.0 mg/dl (6-23); Calcium 9.2 mg/dl (8.6-10.3); Carbon Dioxide 26.0 mmol/L (21-32); Chloride 108.0 mmol/L (98-107); Creatinine Clr Calc Pharmacy 39.5 ml/min; Glucose 116.0 mg/dl (70-99(Fasting)); Potassium 4.1 mmol/L (3.5-5.1); Sodium 139.0 mmol/L (136-145)
--- NOTE | 2024-11-16 07:43 | Orthopedic Progress Note ---
Date of Service November 16, 2024 Assessment & Plan (1) Osteoarthritis of knees, bilateral: Plan: Postop day 2 total knee replacement increased difficulty due to severity of arthritis and obesity. PT/OT DVT prophylaxispatient restarted Eliquis. TRAE stockings. HemovacHemovac to be removed prior to discharge. Discharge planningpatient is [facility]. She will be discharged later this morning and her family will be transporting her. Severe end-stage bilateral knee osteoarthritis complicated by morbid obesity. Patient's activity is extremely limited making it extremely difficult for her to lose weight. There will be an increased level of difficulty already doing the knee replacement due to the severity of the osteoarthritis and this will only get worse over time. Plan is to proceed with a total knee replacement and we will add cemented stem extension to help mitigate loosening and may need constrained polyethylene due to the significant instability. There also will be some increased difficulty due to her morbid obesity BMI 54.3. Admission and Anticipated Discharge Date Admission Date: November 14, 2024 Subjective Patient is doing well post right total knee arthroplasty. Pain is controlled in the right knee. She has been ambulating and participating in physical therapy. No complaints today. Physical Exam Constitutional: WD/WN, vitals as above no acute distress (Lying comfortably in bed.) Musculoskeletal: Knee: + surgical incision (Right knee ALESIA dressing intact and functioning.) and + surgical drain present (Only 5 cc drainage over 24 hours.); no skin erythema and no ecchymosis Skin: no rashes, warm and dry Trauma: no evidence of skin trauma Neurologic: normal touch/pain/proprioception Psychiatric: A+Ox3, euthymic affect Speech: normal rate/rhythm/volume of speech Results & Data Vital Signs (Past 12 Hours) Vital Signs Temp Pulse BP Pulse Ox O2 Del Method 11/15/24 22:32 36.6 C 90 125/83 95 Room Air (1) Osteoarthritis of knees, bilateral Osteoarthritis type: primary Qualified Code(s): M17.0 - Bilateral primary osteoarthritis of knee
[2024-11-16 08:54] VITALS: BP 140/84; PULSE 76; TEMP 98.1; O2SAT 97
--- NOTE | 2024-11-16 09:33 | Communication Note ---
Date of Service: November 16, 2024 Chart reviewed. WBC elevation suspected 2nd to steroids and has been afebrile. Postoperative hemoglobin remains stable. Renal function has improved from yesterday appears to be at baseline with creatinine 1.58. Electrolytes are normal. Vital signs are stable. No acute events overnight. Patient is medically stable for discharge to rehab from hospital medicine's perspective. Plan is for patient to be discharged to rehab via EMS transport at 10 AM. Please reach out to hospital medicine if there are any questions or concerns.
--- NOTE | 2024-11-21 13:26 | Discharge Summary ---
Date of Service November 21, 2024 Admission HPI Per Admitting Provider 74-year-old female with very severe advanced bilateral knee osteoarthritis with me getting injections on a routine basis for years and is at the point where the injections are not helping her anymore she is disabled functionally and unable to manage the pain any longer. Patient denies headaches, sweats, fevers, chills, double vision, blurred vision, cough, sore throat, dysphagia, chest pain, sob at rest with shortness of breath climbing stairs and walking up a hill, wheezing, n/v/d/c, numbness, tingling, fatigue, urinary symptoms. ROS positive for loud snoring and CPAP, slow to wake up from anesthesia morbid obesity with some but not substantial weight loss. Principal Diagnosis Right knee osteoarthritis Discharge Exam Constitutional WD/WN, vitals as above no acute distress (Lying comfortably in bed.) Musculoskeletal Knee: + surgical incision (Right knee ALESIA dressing intact and functioning.) and + surgical drain present (Only 5 cc drainage over 24 hours.); no skin erythema and no ecchymosis Skin no rashes, warm and dry Trauma: no evidence of skin trauma Neurologic normal touch/pain/proprioception Psychiatric A+Ox3, euthymic affect Speech: normal rate/rhythm/volume of speech Discharge Data Allergies Allergy/AdvReac Type Severity Reaction Status Date / Time erythromycin base AdvReac Severe Hallucinations Verified 11/14/24 05:32 (when combination with sudafed) pseudoephedrine AdvReac Severe Hallucinations Verified 11/14/24 05:32 (when combination with e-mycin) codeine AdvReac Intermediate Nausea, Verified 11/14/24 05:32 Vomiting hydrocodone AdvReac Intermediate Nausea, Verified 11/14/24 05:32 Vomiting oxycodone AdvReac Intermediate Nausea, Verified 11/14/24 05:32 Vomiting simvastatin AdvReac Intermediate Muscle Verified 11/14/24 05:32 Aches Consultations 11/09/24 14:16 Consult Hospitalist Routine Procedures Performed Operation Date: 11/14/24 07:00 Actual Procedures p Right Total Knee Arthroplasty(Right) - Adeel Negrete MD Ordered Studies 11/14/24 05:00 US - OR guided needle placemen Routine Hospital Course (1) Osteoarthritis of knees, bilateral: Postop day 2 total knee replacement increased difficulty due to severity of arthritis and obesity. PT/OT DVT prophylaxispatient restarted Eliquis. LARKIN stockings. HemovacHemovac to be removed prior to discharge. Discharge planningpatient is accepted to [facility]. She will be discharged later this morning and her family will be transporting her. Severe end-stage bilateral knee osteoarthritis complicated by morbid obesity. Patient's activity is extremely limited making it extremely difficult for her to lose weight. There will be an increased level of difficulty already doing the knee replacement due to the severity of the osteoarthritis and this will only get worse over time. Plan is to proceed with a total knee replacement and we will add cemented stem extension to help mitigate loosening and may need constrained polyethylene due to the significant instability. There also will be some increased difficulty due to her morbid obesity BMI 54.3. Total Time Total Time Spent Total Time Spent (In Minutes): 30 Discharge Plan Discharge Items Patient Disposition: Transfer Detention Fac Reason For Visit: Right Knee Degenerative Joint Disease Discharge Diagnosis: Right knee osteoarthritis Activity: Per Instructions section Non-emergency contact: Primary Care Provider and Surgeon Call non-emergency contact if: your pain is not controlled, your pain is worsening and your temperature is above 101 Follow-up/Referrals: Kristy Herron CRNP [Primary Care Provider] - Diet: Regular Addtl Attending Provider Instructions: ACTIVITY RECOMMENDATIONS: SELF CARE INSTRUCTIONS AFTER TOTAL KNEE REPLACEMENT A. You may need to continue a physical therapy program after discharge from the hospital. There are several options available to you. Your doctor will assist you in selecting the best one for you. 1. An out-patient facility 3 times a week for therapy. 2. Home therapy for 1 to 2 weeks with outpatient therapy to follow. 3. Continue working on all exercises taught by physical therapy three times a day for 20 minutes on non-therapy days. Your goals should be to increase the bending of your knee to 90 degrees and beyond and to fully straighten your knee. Ice and elevate knee after exercise. B. Weight as tolerated with a walker or as instructed by your physician. C. It is okay to shower if minimal to no drainage from incision. No Baths. Do not soak wound. D. Make walking a part of your daily routine. Be up as much as comfortable with rest periods throughout the day. Rest with leg elevation is very important. Use the ice wrap frequently for the first 3-4 weeks. E. There are no restrictions on activities. You may ride in a car, shop, participate in machine ii cutter and all social activities. F. Wear the long elastic stockings (TRAE hose) 20 hours a day for one month after surgery. They can be removed several times a day for laundering and when showering. G. You may return to previous diet. H. ALESIA dressing: You have a ALESIA dressing on your surgical wound. It will remain in place for 7 days from surgery. You will be provided with a booklet with the do's and don'ts with the dressing in place. After 7 days, the dressing may be removed. If there is drainage from the surgical incision, you may cover the wound with dry dressings SPECIAL CARE INSTRUCTIONS: VERY IMPORTANT TO READ AND REVIEW A. Take Coumadin, Xarelto, Aspirin or Lovenox (blood thinning medications) as directed by your doctor. If on Coumadin, have a pro-time (blood test) drawn according to your doctor's instructions. This will tell the doctor how well the Coumadin is thinning your blood. B. There are a few signs you need to watch for after you are home. Call [facility] if you notice any of the followin. Increased severe knee pain. Some pain is expected especially when you exercise. 2. Increased swelling in your leg or knee; pain or swelling of the calf muscle in either lower leg. 3. Any redness or fluid drainage from the incision. 4. Shortness of breath or chest pain. 5. A Temperature of 101 degrees F or greater. C. Please call [facility] at if you have any concerns or questions about your operation or recovery. The doctor or his nurse will return your call promptly. D. You must take antibiotics before dental work, bladder, bowel or other surgery. Your doctor will provide you with a permanent care to carry describing this precaution. FOLLOW UP VISIT: If appointment is not already scheduled: Please call [facility] to make a follow-up appointment for 2 weeks after your surgery at . Pending Studies at Discharge: No Stand-Alone Forms: My [facility] Skilled Items Patient informed of condition?: Yes DNR: No Discharge Level of Care: Acute rehab Communicable Disease: No Discharge Prognosis: Improving Lines: None Urinary Catheter: No Medications and DC Order Prescriptions: New tramadol 50 mg Tablet 50 - 100 mg PO Q4H PRN (Reason: pain) Qty: 30 0RF acetaminophen [Tylenol Extra Strength] 500 mg Tablet 1,000 mg PO Q8 Qty: 90 0RF cefadroxil 500 mg capsule 500 mg PO Q12H Qty: 28 0RF Continued furosemide [Lasix] 20 mg tablet 20 mg PO QAM Qty: 30 2RF meclizine 25 mg tablet 25 mg PO TID PRN (Reason: Dizziness Or Vertigo) Qty: 90 0RF Patient Comments: takes one every morning tolterodine [Detrol LA] 2 mg capsule,extended release 24hr 2 mg PO QAM Qty: 90 3RF bupropion HCl [Wellbutrin SR] 150 mg tablet sustained-release 12 hr 150 mg PO BID Qty: 180 3RF Eliquis 5 mg tablet 5 mg PO BID Qty: 60 11RF rosuvastatin 20 mg tablet 20 mg PO Q2D Rx Instructions: takes only on even days latanoprost (PF) 0.005 % Drops 1 drp OPHTHALMIC (EYE) HS metoprolol succinate 50 mg tablet extended release 24 hr 50 mg PO HS olmesartan 40 mg tablet 40 mg PO QAM Discontinued tramadol 50 mg tablet 50 mg PO QAM Qty: 90 0RF Discharge Orders: Discharge Order (Routine); Ordered 11/16/24 Ordered By: Adeel Negrete Admission Data Admit Date/Time: 11/14/24 11:12 Attending Provider: Adeel Negrete Admit Provider: Adeel Negrete Primary Care Provider: Kristy Herron Other Providers: Reggie Morrison Other Interventions: Discharge Summary Assessment (RN) Last Done: 11/16/24 09:45
== END 2024-11-16 10:40 ==
LOC: 3E 05:27 → ASU 05:27
DX: Z88.8 Allergy status to other drugs, medicaments and biological substances; Z79.899 Other long term (current) drug therapy; K21.9 Gastro-esophageal reflux disease without esophagitis; Z68.43 Body mass index [BMI] 50.0-59.9, adult; Z79.01 Long term (current) use of anticoagulants; E78.5 Hyperlipidemia, unspecified; I10 Essential (primary) hypertension; G47.33 Obstructive sleep apnea (adult) (pediatric); I48.91 Unspecified atrial fibrillation; M17.0 Bilateral primary osteoarthritis of knee; Z88.5 Allergy status to narcotic agent; E66.01 Morbid (severe) obesity due to excess calories